=== PATIENT | male | born 1945 | race Caucasian/White ===

== ENCOUNTER → 2016-08-12 | Outpatient (CLI) | payer OTHER, MEDICARE ==
[~2016-08-12] MED LIST: ACET1TAB84 PO; ASPI81TA28 PO; ATEN-173 PO; HYDR25TA5 PO; NAPR1TAB9 PO; PRLSR20 PO; SIMV10TA2 PO
--- NOTE | 2016-08-12 09:28 | DIAGNOSTIC IMAGING REPORT ---
BILATERAL KNEE RADIOGRAPHS CLINICAL HISTORY: Bilateral knee pain COMPARISON: Knee radiograph September 04, 2015. FINDINGS: Right knee: There is severe medial compartment joint space narrowing of the right knee with extensive osteophytosis. There is subchondral sclerosis. There is extensive osteophytosis within the 3 compartments of the right knee with extensive spurring of the superior pole of the patella. There is no fracture or suspicious lesion. There is a moderate to large right knee joint effusion. Left knee: There is moderate to severe medial compartment joint space narrowing of the left knee. There are severe osteophytosis within the 3 compartments of the left knee. No fracture or suspicious lesion is present. There is a moderate-sized left knee joint effusion. IMPRESSION: Right knee: 1. Severe osteoarthrosis of the right knee, most pronounced within the medial compartment. 2. No acute fracture. 3. Moderate to large right knee joint effusion. Left knee: 1. Severe arthritis of the left knee, most pronounced within the medial compartment. 2. Moderate size left knee joint effusion. Electronically signed by: Markos Cordoba M.D. 08/12/2016 9:26 AM Dictated Date/Time: 08/12/2016 9:23 AM
== END | disposition home or self-care (01) ==
LOC: C.RDSM 12:05
PROVIDERS: ATTEND Physician Assistant
DX: M25.561 Pain in right knee (principal); M25.562 Pain in left knee

== ENCOUNTER → 2017-02-28 | Outpatient (CLI) | payer OTHER, MEDICARE ==
[~2017-02-28] VITALS: Ht 177.8 cm; Wt 96.3 kg
[2017-02-28 10:10] VITALS: Ht 177.8 cm; Wt 96.3 kg
--- NOTE | 2017-02-28 10:42 | PAT Medication Instructions ---
Service Date Feb 28, 2017. Current Home Medication List Acetaminophen (Tylenol Arthritis Ext Rel), 650 MG PO UD PRN for Pain Aspirin (Aspirin Ec), 81 MG PO QPM Atenolol (Tenormin), 25 MG PO QAM Hydrochlorothiazide (Hydrochlorothiazide), 1 TAB PO QAM Naproxen (Aleve), 1 TAB PO BID Omeprazole (Prilosec), 20 MG PO Q2D Simvastatin (Zocor), 1 TAB PO HS Medication Instructions For Your Scheduled Surgery - Check with surgeon for instructions: Naproxen (Aleve), 1 TAB PO BID - Continue as directed: Omeprazole (Prilosec), 20 MG PO Q2D - Hold the following medications the morning of surgery: Hydrochlorothiazide (Hydrochlorothiazide), 1 TAB PO QAM - Take the following medications the morning of surgery with a sip of water: Acetaminophen (Tylenol Arthritis Ext Rel), 650 MG PO UD PRN for Pain i(okay to take up to 4 hours prior to surgery if needed) Atenolol (Tenormin), 25 MG PO QAM - Take the following medications as scheduled the night before surgery: Aspirin (Aspirin Ec), 81 MG PO QPM Simvastatin (Zocor), 1 TAB PO HS If you have any questions please call us at [phone] or [phone] or [phone]
--- NOTE | 2017-02-28 11:21 | DIAGNOSTIC IMAGING REPORT ---
CHEST 2 VIEWS ROUTINE CLINICAL HISTORY: PAT preoperative evaluation COMPARISON STUDY: No previous studies for comparison. FINDINGS: The bones soft tissues and hemidiaphragms are normal. The cardiomediastinal silhouette is normal. The lungs are clear. The pulmonary vasculature is normal. IMPRESSION: Negative chest. The above report was generated using voice recognition software. It may contain grammatical, syntax or spelling errors. Electronically signed by: River Ramirez M.D. 02/28/2017 11:19 AM Dictated Date/Time: 02/28/2017 11:18 AM
[2017-02-28 11:23] LABS: BASO % 0.2 %; BASO ABS # 0.02 K/uL (0-0.2); EOS % 1.4 %; EOS ABS # 0.13 K/uL (0-0.5); HEMATOCRIT 45.6 % (42-52); HEMOGLOBIN 15.6 g/dL (14.0-18.0); IG# 0.01 K/uL (0.00-0.02); LYMPH % 12.6 %; LYMPH ABS # 1.15 K/uL (1.2-3.4); MEAN CELL VOLUME 89.1 fL (80-100); MEAN CORPUSCULAR HEMOGLOBIN 30.5 pg (25-34); MEAN CORPUSCULAR HGB CONC 34.2 g/dl (32-36); MEAN PLATELET VOLUME 10.4 fL (7.4-10.4); MONO % 11.8 %; MONO ABS # 1.07 K/uL (0.11-0.59); NEUT % 73.9 %; NEUT ABS # 6.72 K/uL (1.4-6.5); PLATELET COUNT 224 K/uL (130-400); RED CELL DISTRIBUTION WIDTH SD 42.4 fL (36.4-46.3)
[2017-02-28 11:32] LABS: PTT PATIENT 27.1 SECONDS (21.0-31.0)
[2017-02-28 12:19] LABS: CALCIUM 9.1 mg/dl (8.5-10.1); CREATININE 1.24 mg/dl (0.60-1.40); POTASSIUM 4.3 mmol/L (3.5-5.1)
--- NOTE | 2017-03-04 16:45 | HISTORY & PHYSICAL EXAMINATION ---
DATE OF ADMISSION: 03/26/2017 CHIEF COMPLAINT: Left knee pain. HISTORY OF PRESENT ILLNESS: This 71-year-old white male presents to the office with complaints of left knee pain that has been ongoing for several years. It has become worse with time. He describes more of a soreness and stiffness in the knee most of the time. Pain is affecting his ADLs. No catching or locking. No buckling. He has tried oral anti-inflammatories, activity modification, topical agents, cortisone injections, and viscosupplementation without lasting relief. Preoperative imaging has been obtained. He elects to proceed with total knee arthroplasty in hopes of alleviating his discomfort. PAST MEDICAL HISTORY: Significant for hypertension, osteoarthritis, GERD, kidney stones, Lyme disease, elevated cholesterol, and history of pneumonia. PREVIOUS SURGERIES: Tonsillectomy with adenoidectomy, dental surgery, and varicocele repair. ALLERGIES: NKDA. CURRENT MEDICATIONS: Aspirin 81 mg daily, atenolol 25 mg daily, HCTZ 25 mg daily, Aleve 220 mg b.i.d., omeprazole 20 mg daily, and simvastatin 10 mg p.o. at bedtime. FAMILY HISTORY: Significant for cancer and diabetes. SOCIAL HISTORY: The patient is . No tobacco use. Rare ETOH use. REVIEW OF SYSTEMS: Significant for above stated conditions. Otherwise unremarkable. PHYSICAL EXAMINATION: GENERAL: Well-developed and well-nourished elderly white male in no acute distress. Sitting in a chair. Alert and oriented. SKIN: Warm and dry with good turgor. No rashes or lesions. No ecchymosis or erythema. HEENT: Normocephalic and atraumatic. Eyes, PERRLA and EOMI. Nares patent bilaterally without turbinate enlargement. Oropharynx is without erythema or exudate. No lesions noted. Uvula midline. Oral mucosa moist. HEART: RRR. No MGR. LUNGS: Clear to auscultation bilaterally. No crackles, rhonchi or wheezing. Good air movement. ABDOMEN: Bowel sounds present x4. Soft and nontender. No organomegaly. No masses. MUSCULOSKELETAL: Left knee evaluation reveals no intra-articular effusion. No redness or warmth. He has a varus alignment. Stable collateral ligaments. Focal discomfort with palpation over the medial and lateral joint lines. No defect in the patellar tendon or quadriceps tendon. Lacks approximately 5 degrees of terminal extension. Flexion to well over 100 degrees. Strength is 5/5 with good quad tone. Ambulatory with a slightly antalgic gait. NEUROLOGIC: Cranial nerves II through XII are intact. Gross sensation is intact across the left leg by soft touch. Peripheral pulses are 2+. DATA: Radiographic imaging previously obtained shows tricompartmental arthritis. Periarticular osteophytes, subchondral sclerosis, and joint space narrowing are all present. IMPRESSION: Left knee end-stage degenerative joint disease. PLAN: Postoperative prescriptions for [place] and Coumadin will be provided at discharge from the hospital. He requests no significant of Protonix and no heavy narcotics. Preoperative lab work, EKG, and chest x-ray have been ordered. Medical clearance has been requested from his PCP. Anticipate discharge to home with likely outpatient PT. He will consider home health. He elects to use crutches postoperatively and will obtain a set and bring them to the hospital. YORDAN
== END | disposition home or self-care (01) ==
LOC: C.LAB 08:00 → EDSTATUS 03-26 07:00
PROVIDERS: ATTEND Physical Medicine & Rehabilitation Sports Medicine
DX: Z01.818 Encounter for other preprocedural examination (principal); M17.12 Unilateral primary osteoarthritis, left knee

== ENCOUNTER 2023-12-03 05:03 | Observation (INO) ==
--- NOTE | 2023-11-05 12:29 | PAT Medication Instructions ---
Medication Instructions Date of Service November 05, 2023 Home Medications acetaminophen 325 mg tablet 650 mg PO BID PRN aspirin 81 mg tablet,delayed release 81 mg PO QAM lisinopril 10 mg tablet 10 mg PO QAM metoprolol succinate 100 mg tablet,extended release 24 hr 100 mg PO QAM triamterene 37.5 mg-hydrochlorothiazide 25 mg capsule 1 cap PO QAM L.acidophil-L.casei-B.bifid-B.longum-FOS 2 billion cell-50 mg capsule (Probiotic Blend) 1 cap PO QAM fluticasone propionate 50 mcg/actuation nasal spray,suspension (Flonase Allergy Relief) 1 spray intranasal DAILY PRN multivitamin with minerals-folic acid 80 mcg chewable tablet (Centrum Adult 50 Plus) 1 tab PO QAM pantoprazole 40 mg tablet,delayed release 40 mg PO Q OTHER DAY rosuvastatin 40 mg tablet 40 mg PO HS tadalafil 20 mg tablet 20 mg PO QAM vitamin C 45 mg-zinc citrate 3.75 mg-elderberry 50 mg chewable tablet ([employer]) 2 tab PO QAM Continue as directed pantoprazole 40 mg tablet,delayed release 40 mg PO Q OTHER DAY fluticasone propionate 50 mcg/actuation nasal spray,suspension (Flonase Allergy Relief) 1 spray intranasal DAILY PRN(if needed) ASK your prescriber and surgeon aspirin 81 mg tablet,delayed release 81 mg PO QAM DO NOT take the morning of surgery lisinopril 10 mg tablet 10 mg PO QAM triamterene 37.5 mg-hydrochlorothiazide 25 mg capsule 1 cap PO QAM L.acidophil-L.casei-B.bifid-B.longum-FOS 2 billion cell-50 mg capsule (Probiotic Blend) 1 cap PO QAM multivitamin with minerals-folic acid 80 mcg chewable tablet (Centrum Adult 50 Plus) 1 tab PO QAM tadalafil 20 mg tablet 20 mg PO QAM vitamin C 45 mg-zinc citrate 3.75 mg-elderberry 50 mg chewable tablet ([employer]) 2 tab PO QAM Take morning of surgery With a small sip of water, OTHERWISE NOTHING TO EAT OR DRINK AFTER MIDNIGHT: acetaminophen 325 mg tablet 650 mg PO BID PRN(if needed) metoprolol succinate 100 mg tablet,extended release 24 hr 100 mg PO QAM Take evening before surgery acetaminophen 325 mg tablet 650 mg PO BID PRN(if needed) rosuvastatin 40 mg tablet 40 mg PO HS Other Notes If you have any questions please call us at [phone] or [phone] or [phone] or [phone]
--- NOTE | 2023-11-10 14:50 | Anesthesiology Consultation ---
Date of Service November 10, 2023 Assessment & Plan (1) Encounter for pre-operative examination: - Katie Paez cardiology clearance and updated echocardiogram per discussion with Dr. Gomez. 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 Surgeon's office made aware, message left requesting patient return call. Determination on procedure at [facility] will pend medical and cardiology clearances, updated echocardiogram and then final discussion with an anesthesiologist. - awaiting medical pre-operative evaluation (Dr. Hector Hewitt) scheduled for this month per pt. - will request recent labs from PCP Dr. Hector Hewitt, reviewed on portal and CBC with diff and BMP were cancelled. - Medtronic ICD. - h/o awareness during left knee replacement: I had a detailed discussion with patient regarding neuraxial vs general anesthesia and he expresses would prefer neuraxial anesthesia for upcoming procedure. 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 Adequate pacing and sensing thresholds. Adequate battery reserve...no angina...appears euvolemic...follow up one year..." - Outpatient joint assessment: Patient is currently scheduled for inpatient pathway. If re-evaluated and patient/surgeon requests outpatient pathway, patient is not ideal candidate for outpatient joint program from anesthesia standpoint. Chart Review Chart Review: Pending: Refer to Additional Notes / Consult section and Patient seen in Pre Admission Testing Teaching & Discussion Pre-Anesthesia Teaching/Discussion Notes: Instructed NPO after midnight before surgery, except medications with 15 cc of water. Medication instructions provided according to the PAT guidelines. History Surgery Operation Date: 12/03/23 08:50 Proposed Procedures p Right Total Knee Arthroplasty - Babar Hall MD Height/Weight Height: 5 ft 10 in Weight: 90.1 kg Allergies Allergy/AdvReac Type Severity Reaction Status Date / Time bee pollen Allergy Severe anaphylaxis Verified 11/04/23 12:18 amoxicillin AdvReac Severe Diarrhea Verified 11/04/23 12:18 Medications Home Medications Medication Instructions Recorded Confirmed Last Taken acetaminophen 325 mg tablet 650 mg PO BID PRN Pain 0911/04/23 12/24/17 03:00 aspirin 81 mg tablet,delayed 81 mg PO QAM 11/28/17 11/04/23 12/24/17 03:00 release lisinopril 10 mg tablet 10 mg PO QAM 11/28/17 11/04/23 12/23/17 07:00 metoprolol succinate 100 mg 100 mg PO QAM 11/28/17 11/04/23 12/24/17 03:00 tablet,extended release 24 hr triamterene 37.5 1 cap PO QAM 11/28/17 11/04/23 12/23/17 07:00 mg-hydrochlorothiazide 25 mg capsule L.acidophil-L.casei-B.bifid-B.longum-FOS 1 cap PO QAM 11/04/23 11/04/23 Unknown 2 billion cell-50 mg capsule (Probiotic Blend) fluticasone propionate 50 1 spray intranasal DAILY PRN Nasal 11/04/23 11/04/23 Unknown mcg/actuation nasal Congestion spray,suspension (Flonase Allergy Relief) multivitamin with minerals-folic 1 tab PO QAM 11/04/23 11/04/23 Unknown acid 80 mcg chewable tablet (Centrum Adult 50 Plus) pantoprazole 40 mg tablet,delayed 40 mg PO Q OTHER DAY 11/04/23 11/04/23 Unknown release rosuvastatin 40 mg tablet 40 mg PO HS 11/04/23 11/04/23 Unknown tadalafil 20 mg tablet 20 mg PO QAM 11/04/23 11/04/23 Unknown vitamin C 45 mg-zinc citrate 3.75 2 tab PO QAM 11/04/23 11/04/23 Unknown mg-elderberry 50 mg chewable tablet ([employer]) Past Medical History Medical History CAD (coronary artery disease) s/p LIZZY x 1 in 2018 [facility]omyopathy [facility] [place] GERD (gastroesophageal reflux disease) controlled, stable per pt Hypertension controlled, stable per pt ICD (implantable cardioverter-defibrillator) in place Medtronic Myocardial Infarction ?2016 - "SILENT UT"--follows with [facility] [place] Osteoarthritis Sleep-disordered breathing denies formal sleep study, states that was advised to use oral appliance by dentist Patient denies h/o stroke, seizures, DM, blood clots/DVTs or blood transfusions. Exercise / Class Metabolic Activity II 4-5 Yardwork/Stairs/Walk up hill (denies chest discomfort or shortness of breath with one flight of stairs) Past Family History Family History Other No family history of adverse response to anesthesia Past Surgical History Surgical History History of cardiac cath LIZZY X1 05/21/17 TO [facility] at [facility] in [place] History of heart artery stent 04/2017 1 LIZZY placed--done @ [facility] History of implantable cardiac defibrillator (ICD) medtronic 02/20/2021 @ [facility] History of left knee replacement awareness Hx of colonoscopy Hx of tonsillectomy S/P excision of varicocele Past Anesthesia History No Family Hx of Anesthesia Complications and Other (awareness with left TKA) History of PONV No Hx of PONV and No Hx of Motion Sickness Social History Smoking Status: Former smoker Do You Dip or Chew Tobacco: No Smoking End Date: quit years ago Hx Alcohol Use: Yes Alcohol type: beer and hard liquor alcohol intake frequency: a few times a week Hx Substance Use: No substance use type: does not use Review of Systems Patient denies chest pain, shortness of breath, dyspnea on exertion, snoring, witnessed apneas, fever, chills, cough, wheezing, or palpitations. Physical Exam Vital Signs Vitals BP 118/71 P 66 TEMP 98.0 SP02 96% on RA RESP 18 Physical Patient resting comfortably in chair in no acute distress, alert and oriented, responding appropriately throughout visit Full cervical extension range of motion without pain TMD 3.5 finger breadths Mallampati Score 2 Dentition: intact, denies chipped or loose teeth, caps/crowns, implants or bridges Lungs: normal respiratory effort. Good air movement, clear throughout to auscultation, no adventitious breath sounds Cardiac: regular rate and rhythm, no murmurs noted Carotid arteries: negative bruit bilat Lab Results Anesthesia Preop Results Results Anesthesia Widget: PT 11.3 Seconds (9.0-12.0) 11/10/23 PTT 28 Seconds (21-31) 11/10/23 INR 1.0 (0.9-1.1) 11/10/23 Urine Color Yellow 11/10/23 Urine Appearance Clear (Clear) 11/10/23 Urine pH 6.0 (4.5-7.5) 11/10/23 Urine Specific [place] 1.013 (1.000-1.030) 11/10/23 Urine Protein Negative (Negative) 11/10/23 Urine Glucose (UA) Negative (Negative) 11/10/23 Urine Ketones Negative (Negative) 11/10/23 Urine Blood Negative (Negative) 11/10/23 Urine Nitrite Negative (Negative) 11/10/23 Urine Bilirubin Negative (Negative) 11/10/23 Urine Urobilinogen Negative (Negative) 11/10/23 Urine Leukocyte Esterase Negative (Negative) 11/10/23 Blood Type AB Positive 11/10/23 Antibody Screen NEGATIVE 11/10/23 Testing Electrocardiogram Date: 08/31/23 Sinus bradycardia with 1st degree AV block, rate 57 bpm Left axis deviation Septal infarct cited on or before 02/09/2021 Chest X-Ray Date: 11/10/23 No active disease in the chest. Echocardiogram Date: 01/01/21 EF 30-35% Large sized apical, septal, anteroseptal, anterior, inferior, posterior and lateral wall motion abnormality with akinesis of the segments Aortic valve is mildly sclerotic, but without aortic valve stenosis Mild to moderate aortic valve insufficiency Mild mitral regurgitation Mildly dilated ascending aorta Cardiac Catheterization Date: 03/23/18 RCA: 30-40% disease mid to distal portion Left main: 20-30% disease LCx: 20-30% disease LAD: 100% occlusion in the proximal portion which is known. There are left to left collaterals filling the vessel retrogradely up to its midportion Stent visible in ostium of ramus intermedius: no in-stent restenosis Recommend further workup of the ascending aortic aneurysm Other Testing ICD report 09/01/23 Medtronic Mode AAI DDD Alerts or events: none Presenting rhythm-/VS No significant changes noted A pacing 0.5% RV pacing 0.05% AT/AF burden 0%
--- NOTE | 2023-11-12 10:33 | History & Physical Report ---
Date of Service November 12, 2023 Assessment & Plan (1) Osteoarthritis of right knee: Plan: PRE-OP Diagnosis: Right knee osteoarthritis Planned Procedure: Right total knee arthroplasty Plan: Patient is scheduled to undergo this procedure at the [facility] with Dr. Hall on December 03, 2023. Risks and complications of the procedure such as: Infection, bleeding, pain, scarring, nerve blood vessel damage, weakness, wound problems, stiffness, incomplete relief of symptoms, hardware failure, hardware loosening, wear, fracture, tendon or ligament injury, blood clots, embolism, cardiac, stroke and were explained to the patient at his visit today and informed consent for the procedure was obtained. We will need to obtain preoperative medical clearance from the patient's primary care provider and telecasting technician. Patient is scheduled to meet with anesthesia at the hospital later today. While there he will obtain a CBC with differential, complete metabolic panel, PT/INR, PTT, blood type and screen, urinalysis, urine culture and sensitivity, EKG a nasal culture for MRSA and a chest x-ray. During today's visit we reviewed the total knee packet. I provided the patient with paperwork to obtain obtaining a handicap placard for his vehicle. I provided him with information about lectures offered by [facility] in regards to joint replacement surgery. Patient has a walker at home that he will bring with him on the day of surgery. Patient also states that he has a shower chair and raised toilet seat from his previous total knee arthroplasty. We discussed discharge planning from the hospital. Patient states he will most likely do in-home physical therapy for the first 2 weeks before transitioning to outpatient physical therapy near his home. I advised the patient that he will be provided with a prescription for narcotic pain medication for postoperative pain control. We will have him on Eliquis twice daily for the first 30 days postoperatively for blood clot prevention. Patient is scheduled for his 2-week postoperative follow-up visit with Rocky Velasco on December 17. This chart was completed utilizing [employer] voice recognition software. Grammatical errors, random word insertions, pronoun errors, and in complete sentences are an occasional consequence of the system. Any questions or concerns about the content, text, or information contained within the body of this dictation should be addressed directly to the physician for clarification. History of Present Illness Chief Complaint: Chief Complaint: Right knee pain Primary Care Provider: Hector Hewitt MD History of Present Illness (including history relevant to procedure): This 78-year-old male presents to clinic today for his preoperative history and physical. Patient has a longstanding history of persistent right knee pain that is affecting his ability to ambulate in a normal fashion. Patient states that the he has tried corticosteroid injections, viscosupplementation and activity modification but is still having discomfort in the medial aspect of his knee. He states that he has obvious malalignment and is unable to fully straighten his leg. Patient states that he previously had his left knee replaced and is doing very well and would like to proceed with right total knee arthroplasty. Review Of Systems: A 12 point review of systems is performed and is unremarkable except for those things stated in the HPI and past medical history. Past Medical History: Problems: Right knee pain Osteoarthritis of right knee S/P total knee arthroplasty Knee osteoarthritis Knee pain, left HTN (hypertension) Osteoarthritis Knee Hypercholesterolemia Procedure History Procedure Procedure Date Comments Stent - 2017 Cardiac pacemaker - 02/20/21 placement Varicella 1967 Allergies and Sensitivities: amoxicillin-clavulanate(severe diarrhea) Bee stings Current Home Meds: (Last Updated 11/09 13:38) acetaminophen (Tylenol) 1,000 mg PO every six hours aspirin (aspirin 81 mg oral delayed release tablet) 81 mg PO Daily clindamycin (clindamycin 300 mg oral capsule) 2 capsules 1 hour before dental cleaning hydroCHLOROthiazide-triamterene (hydroCHLOROthiazide-triamterene 25 mg-37.5 mg oral tablet) 1 tab PO Daily lisinopril 2.5 mg PO Daily metoprolol (metoprolol succinate (ER)) 50 mg PO Daily rosuvastatin 20 mg PO Daily sildenafil 80 mg PO as needed sodium hyaluronate (Gelsyn-3 16.8 mg/2 mL intra-articular solution) 16.8 mg intra-articular q7days R KNEE DJD M17.11 tadalafil (Tadalafil (Eqv-Cialis) 20 mg oral tablet) TAKE 1 TABLET BY MOUTH ONCE DAILY NEEDED FOR ERECTILE DYSFUNCTION Initial Wt: 11/09 89.6 kg 197 lb Allergies Allergy/AdvReac Type Severity Reaction Status Date / Time bee pollen Allergy Severe anaphylaxis Verified 11/04/23 12:18 amoxicillin AdvReac Severe Diarrhea Verified 11/04/23 12:18 Home Medications Medication Instructions Recorded Confirmed Type acetaminophen 325 mg tablet 650 mg PO BID PRN Pain 11/28/17 11/04/23 History aspirin 81 mg tablet,delayed 81 mg PO QAM 11/28/17 11/04/23 History release lisinopril 10 mg tablet 10 mg PO QAM 11/28/17 11/04/23 History metoprolol succinate 100 mg 100 mg PO QAM 11/28/17 11/04/23 History tablet,extended release 24 hr triamterene 37.5 1 cap PO QAM 11/28/17 11/04/23 History mg-hydrochlorothiazide 25 mg capsule L.acidophil-L.casei-B.bifid-B.longum-FOS 1 cap PO QAM 11/04/23 11/04/23 History 2 billion cell-50 mg capsule (Probiotic Blend) fluticasone propionate 50 1 spray intranasal DAILY PRN Nasal 11/04/23 11/04/23 History mcg/actuation nasal Congestion spray,suspension (Flonase Allergy Relief) multivitamin with minerals-folic 1 tab PO QAM 11/04/23 11/04/23 History acid 80 mcg chewable tablet (Centrum Adult 50 Plus) pantoprazole 40 mg tablet,delayed 40 mg PO Q OTHER DAY 11/04/23 11/04/23 History release rosuvastatin 40 mg tablet 40 mg PO HS 11/04/23 11/04/23 History tadalafil 20 mg tablet 20 mg PO QAM 11/04/23 11/04/23 History vitamin C 45 mg-zinc citrate 3.75 2 tab PO QAM 11/04/23 11/04/23 History mg-elderberry 50 mg chewable tablet ([employer]) Past Med/Surg History Problem List (Updated 11/12/23 @ 10:31 by Zeeshan Aguilar PA-C) Osteoarthritis of right knee Encounter for pre-operative examination Medical History Sleep-disordered breathing denies formal sleep study, states that was advised to use oral appliance by dentist ICD (implantable cardioverter-defibrillator) in place Medtronic Cardiomyopathy follows with [facility] [place] CAD (coronary artery disease) s/p LIZZY x 1 in 2018 Hypertension controlled, stable per pt Osteoarthritis GERD (gastroesophageal reflux disease) controlled, stable per pt Myocardial Infarction ?2016 - "SILENT GA"--follows with [facility] [place] Surgical History History of left knee replacement awareness History of heart artery stent 04/2017 1 LIZZY placed--done @ [facility] History of implantable cardiac defibrillator (ICD) medtronic 02/20/2021 @ [facility] S/P excision of varicocele Hx of colonoscopy Hx of tonsillectomy History of cardiac cath LIZZY X1 05/21/17 TO RAMUS at [facility] in [place] Family History Other No family history of adverse response to anesthesia Social History Smoking Status: Former smoker Tobacco Type: Cigarettes Second Hand Exposure: No; Do You Dip or Chew Tobacco: No; Hx Alcohol Use: Yes Alcohol type: beer and hard liquor Hx Substance Use: No Preferred Language: Sami Communication Ability: Effective Visual Impairment: Limited Frame Table Operator Helper Required: No Beliefs That Will Affect Care: None Current Living Situation: Spouse Feels Safe at Home: Yes Assistive Devices: Glasses Review of Systems All systems reviewed & are unremarkable except as noted in Subjective Physical Exam Physical Exam: Physical Exam: (relevant to the procedure, including heart and lung evaluation) General: Alert and oriented x 3 with proper grooming and hygiene Eyes: Pupils are equal reactive to light with accommodation. Extraocular movements are intact Throat: Posterior oropharynx is clear with absence of edema, erythema or exudate. Dentition is appropriate Cardiac: Regular rate and rhythm with a grade 3/6 holosystolic murmur noted in the left upper and lower sternal border. No gallops appreciated Lungs: Clear to auscultation throughout with no wheezing, rales or rhonchi Abdomen: Mildly obese, nondistended, nontender with NABS Extremities: Right knee; range of motion is from 8 degrees of extension to 102 degrees of flexion. He has visible varus malalignment. There is audible crepitation with passive range of motion. His patella is not mobile due to arthritic change within the patellofemoral joint. There is no laxity with varus or valgus stressing. AP drawer sign and Shayne test are negative. Patient is neurovascularly intact in right lower extremity. Neuro: Cranial nerves II through XII are intact no motor or sensory deficit Skin: Normal in appearance with no open skin areas or discharge Results & Data Diagnostic Findings Studies (relevant to the procedure): x-rays shows advanced osteoarthritis of the right knee and a well-fixed, well-aligned knee replacement on the left.
[2023-12-03 05:46] LABS: Basophils # (auto) 0.05 K/uL (0.00-0.20); Basophils % (auto) 0.6 %; Eosinophils % (auto) 2.6 %; Hematocrit (blood only) 39.4 % (42.0-52.0); Hemoglobin 13.5 g/dl (14.0-18.0); Immature Granulocytes # (auto) 0.01 K/uL (0.01-0.20); Immature Granulocytes % (auto) 0.1 %; Lymphocytes # (auto) 1.66 K/uL (1.20-3.40); Lymphocytes % (auto) 21.2 %; Mean Corpuscular Hgb Conc 34.3 g/dL (32.0-36.0); Mean Corpuscular Volume 90.4 fL (80.0-100.0); Mean Platelet Volume 9.9 fL (9.4-12.4); Monocytes # (auto) 1.11 K/uL (0.11-0.59); Monocytes % (auto) 14.2 %; Neutrophils % (auto) 61.3 %; Platelet Count 226 K/uL (130-400); RDW Coefficient of Variation 13.2 % (11.5-14.5); RDW Standard Deviation 43.8 fL (36.4-46.3); Red Blood Count 4.36 M/uL (4.70-6.10); White Blood Count 7.83 K/ul (4.8-10.8)
[2023-12-03 06:00] LABS: BUN Creatinine Ratio 14.3 (10-20); Calcium 9.7 mg/dl (8.6-10.3); Creatinine Clr Calc Pharmacy 58.6 ml/min; Est GFR (African American) 67.9 ml/min; Est GFR (Non-African American) 58.6 ml/min; Potassium 3.8 mmol/L (3.5-5.1)
[2023-12-03] MEDS: ACETAMINOPHEN 500 MG TAB PO SCH ×2 (06:00→14:56)
[2023-12-03] MEDS ORDERED: ceFAZolin 3000MG 3,000 MG/72.5 ML BAG IV SCH (06:00)
[2023-12-03] MEDS ORDERED: LR 500ML BOLUS, THEN 15ML/HR IV SCH (06:00)
--- OUTSIDE RECORDS SUMMARY | 2023-12-03 06:11 | External Medical Summary | Summary of Care ---
Author Name Unknown Organization [facility] Address [address] [place] [address] Phone [phone] Care Team Providers Care Die Casting Machine Setter Name Role Phone Hector Hewitt MD Primary Care Provider Reason for Visit * Reason Onset Date Comments Medication Refill 11/26/2023 Encounter Details Date Type Department Care Team (Late st Contact Info) Description 11/26/2023 Refill Cardiology [facility] [address], [place] [id number] Nancy Hernandez CRNP [address] [place] [address] [id number] Dyslipidemia, goal LDL below 70 Allergies Active Allergy Reactions Criticality Noted Date Comments Amoxicillin Diarrhea 08/30/2016 Amoxicillin-Pot Clavulanate 08/29/19 23 Bee Venom Edema airway High 11/01/2016 documented as of this encounter (statuses as of 11/26/2023) Medications Medication Sig Dispensed Refills Start Date End Date Status Aspirin 81 MG Oral Tablet Delayed Release Take 1 Tablet by mouth in the morning. Active Metoprolol Succinate ER 100 MG Oral Tablet Extended Release 24 Hour (toPROL XL)Indications:Syst olic CHF, chronic (HCC) TAKE 1 TABLET BY MOUTH IN THE MORNING 90 Tablet 3 05/14/2023 Active Lisinopril 10 MG Oral Tablet (Prinivil)Indicatio ns:Systolic CHF, chronic (HCC) TAKE 1 TABLET BY MOUTH IN THE MORNING 90 Tablet 3 05/14/2023 Active Triamterene-HCTZ 37.5-25 MG Oral Tablet ((Maxzide-25))Indic ations:Systolic CHF, chronic (HCC) TAKE 1 TABLET BY MOUTH DAILY 90 Tablet 3 05/14/2023 Active Fluticasone Propionate 50 MCG/ACT Nasal Suspension (Flonase) USE 2 SPRAYS IN BOTH NOSTRILS ONCE DAILY 48 g 3 06/20/2023 Active Tadalafil 20 MG Oral Tablet (Cialis)Indications :Erectile dysfunction, unspecified erectile dysfunction type Take 1 Tablet by mouth daily as needed for Erectile Dysfunction. 30 Tablet 5 07/21/2023 Active Additional Information Patient taking differently:20 mg OralDaily(AM), Reported on 11/17/2023 Pantoprazole Sodium 40 MG Oral Tablet Delayed Release (Protonix)Indicatio ns:Gastroesophageal reflux disease without esophagitis TAKE 1 TABLET BY MOUTH EVERY OTHER DAY 45 Tablet 3 08/26/2023 Active Centrum Silver 50+Men Oral Tablet Take 1 Tablet by mouth daily. Active Acetaminophen 500 MG Oral Tablet (Tylenol Extra Strength) Take 2 Tablets by mouth every 6 hours as needed for Pain, Moderate. Active Culturelle Digestive Daily Oral Capsule Take 1 Capsule by mouth in the morning. Active Civolutionberry [employer] Health Gummy 50-45-3.8 MG Oral Tablet Chewable (Elderberry-Vitamin C-Zinc) Take 1 Each by mouth daily. Active Rosuvastatin Calcium 40 MG Oral Tablet (Crestor)Indication s:Dyslipidemia, goal LDL below 70 Take 1 Tablet by mouth in the morning. 90 Tablet 3 11/26/2023 Active documented as of this encounter (statuses as of 11/26/2023) Active Problems Problem Noted Date Diagnosed Date CAD in [place] artery 08/31/2022 Gastroesophageal reflux disease 08/31/2022 Hyperlipidemia 08/31/2022 Hypertension 08/31/2022 S/P coronary artery stent placement 08/31/2022 S/P ICD (internal cardiac defibrillator) procedu re 08/31/2022 Screening PSA (prostate specific antigen) 2022 Systolic CHF, chronic 02/09/2021 Overview: Added automatically from request for surgery [id number] documented as of this encounter (statuses as of 11/26/2023) Immunizations Name Administration Dates Next Due COVID-19 mRNA, LNP-s, No Pre serve, 2-Dose Series (Pfizer) 06/02/2020,05/12/2020 DTaP Dipth/Tet/Acell Pertussis (Infanrix), Peds 07/12/2018 Pneumococcal Conjugate Vacc, 13 Valent (Prevnar) 03/01/2016,03/01/2016 Pneumococcal Polysaccharide PPV23 (Pneumovax) 12/11/2016 Season Influenza, Quad, PF, Adjuvanted, 65+ Yrs, IM (FLUAD) 12/17/2019 Seasonal Influenza, High Dos e, Trivalent, PF, IM (Fluzone HD) 01/27/2018,12/11/2016,01/01/2016 Seasonal Influenza, PF, 6 M & above, IM , (FluLaval or Fluzone) 01/01/2016,01/24/2014,12/22/2012,12/03,01/21/2011 Seasonal Influenza, Quadriva lent Hd (Fluzone Hd) 03/03/2023 Seasonal Influenza, Quadriva lent Hd, 65+ Yrs 01/10/2022,12/25/2020 Seasonal Influenza, Quadriva lent, No Preserve, IM 01/24/2014 Seasonal Influenza, Trivalen t, (IIV3), with Preserv, (Fluzone) 12/22/2012,12/04/2011,01/21/2011 Zoster Vaccine Recombinant (Shingrix) 11/22/2018 ,10/22/2018 documented as of this encounter Social History Tobacco Use Types Packs/Day Years Used Date Smoking Tobacco: Former Cigarettes Smokeless Tobacco: Never Alcohol Use Standard Drinks/Week Comments Yes 0 (1 standard drink = 0.6 oz pur e alcohol) occas PHQ-2 Answer Date Recorded PHQ Adult Total Score 0 10/30/2023 Hunger Vital Sign Answer Date Recorded Within the past 12 months, y ou worried that your food would run out before you got the money to buy more. Never true 10/30/19 24 Within the past 12 months, t he food you bought just didn't last and you didn't have money to get more. Never true 10/30/2023 Childcare Answer Date Recorded Do you feel overwhelmed with taking care of a child, family member or friend? No 10/30/2023 Does your family need help f inding childcare? (Household - for ages 0-17 years) Not on file 10/30/2023 Clothing Answer Date Recorded Have you been unable to get clothing when it was really needed? No 10/30/2023 Is your family able to get c lothes or diapers when needed? (Household - for ages 0-17 years) Not on file 10/30/2023 Personal Safety Answer Date Recorded Do you feel unsafe or have concerns for your saf ety? No 10/30/2023 Do you have concerns for you r family's safety? (Household - for ages 0-17 years) Not on file 10/30/2023 Utilities Answer Date Recorded Do you have trouble paying y our heating, water, or electric bill? No 10/30/2023 Is your family able to pay t he heat, water, or electric bill? (Household - for ages 0-17 years) Not on file 10/30/2023 Does your family have access to good internet? (Household - for ages 0-17 years) Not on file 10/30/2023 Employment Status Answer Date Recorded Are you unemployed or without regular income? No 10/30/2023 Does the household have a re gular source of income? (Household - for ages 0-17 years) Not on file 10/30/2023 Social Connections Answer Date Recorded How often do you feel lonely or isolated from th ose around you? Never 10/30/2023 Financial Resource Strain Answer Date R ecorded Do you have any trouble payi ng for your medications, or do you think you might in the future? No 10/30/2023 Does your family have troubl e paying for medicine? (Household - for ages 0-17 years) Not on file 10/30/2023 Transportation Needs Answer Date Record ed Do you have trouble getting a ride to medical visits or work? (Adult - for ages 18 years and over) Not on file 10/30/2023 Does your family have a hard time getting a ride to doctors visits? (Household - for ages 0-17 years) Not on file 10/30/2023 Has lack of transportation k ept you from medical appointments, meetings, work, or from getting things needed for daily living? Check all that apply. No 10/30/2023 Do you (or your family) have trouble finding or paying for a ride (transportation)? (Household - for ages 0-17 years) Not on file 10/30/2023 Housing Stability Answer Date Recorded Do you currently live in a s helter or have no steady place to sleep at night? No 10/30/2023 Do you think you are at risk of becoming homeless? (Adult - for ages 18 years and over) Not on file 10/30/2023 Does your family worry about paying for your home or becoming homeless? (Household - for ages 0-17 years) Not on file 0 10/30/2023 Are you homeless or worried that you might be in the future? No 10/30/2023 Are you (or your family) rosalio eless or worried that you might be in the future? (Household - for ages 0-17 years) Not on file Food Insecurity Answer Date Recorded Do you need food for this week? No 10/30/2023 Are you able to get enough f ood for your family? (Household - for ages 0-17 years) Not on file 10/30/2023 Does your family need food t his week? (Household - for ages 0-17 years) Not on file 10/30/2023 Do you always have enough fo od for your family? (Household - for ages 0-17 years) Not on file 10/30/2023 Sex and Gender Information Value Date Recorded Sex Assigned at Male 10/30/2023 11:05 AM EDT Gender Identity Male 10/30/2023 11:05 AM EDT Sexual Orientation Not on file Job Start Date Occupation Industry Not on file Not on file Not on file documented as of this encounter Miscellaneous Notes * Telephone Encounter - Nancy Hernandez CRNP - 11/26/2023 5:58 PM EDT Signed Prescriptions: Disp Refills Rosuvastatin Calcium 40 MG Oral Tablet (Cr*90 Tab*3 Sig: Take 1 Tablet by mouth in the morning.Authorizing Provider: NANCY HERNANDEZ documented in this encounter Plan of Treatment Upcoming Encounters Date Type Department Care Team (Late st Contact Info) Description 04/02/2024 10:15 AM EST Office Visit Family Eddie [address] [place] [phone] Hector Hewitt MD [facility] [place] [id number] 08/12/2024 3:00 PM EDT Cardiac Studies Cardiology [facility] [address] [place] [address] Clinic, Heart Rhythm [facility] [address] [place] [address] 11/02/2024 11:00 AM EDT Nurse Only Family Morgan [address] [place] [phone] [employer] Pob Scheduled Procedures Name Priority Associated Diagnoses Date/Ti me COLONOSCOPY FLEXIBLE PROXIMA L DIAGNOSTIC Recall Family history of colon cancer Health Maintenance Due Date Last Done Comments Influenza Vaccine (FLU shot) (#1) 2023 03/03/2023, 01/10/2022, 12/25/2020, Additional history exists GFR 09/02/2024 09/03/2023, 06/0 11/2023, 02/25/2023, Additional history exists Depression Screening 10/29/2024 10/30/2023 Colonoscopy 05/10/2025 05/10/2022, 04/24, 11/01/2016 Albumin/Creatinine Ratio 10/29/2026 10/30/2023 DTap/Tdap Vaccines (2 - Tdap) 07/12/2028 07/12/2018 Pneumococcal Vaccine: 65+ Years Completed 12/11/2016, 03/01/2016, 03/01/2016 Zoster Vaccines Completed 11/22/2018, 10/22/2018 COVID-19 Vaccine Discontinued 06/02/2020, 05/12/2020 HPV (Gardasil) Vaccine Aged Out No lo nger eligible based on patient's age to complete this topic Hepatitis B Vaccine Aged Out No longe r eligible based on patient's age to complete this topic Hepatitis C Screening Discontinued MENINGOCOCCAL (MENACTRA/MENVEO) Aged Out No longer eligible based on patient's age to complete this topic documented as of this encounter Medical Devices Implanted Type Area Health Consultant Device Identifier Shelf Expiration Date Model / Serial / Lot Lead Novus Bipolar 52cm - [id number] Implanted:Qty: 1 on 02/20/2021 by Ginger Christensen MD at [facility] [employer] : CRM [id number] 11/09/2022 [id number] / [id number] / [id number] Lead [employer] Quattro Secure - [id number] Implanted:Qty: 1 on 02/20/2021 by Ginger Christensen MD at [facility] [employer] : CRM [id number] 11/07/2022 [id number] / [id number] / [id number] documented as of this encounter Visit Diagnoses Diagnosis Dyslipidemia, goal LDL below 70 Other and unspecified hyperlipidemia documented in this encounter Care Teams Die Casting Machine Setter Relationship Specialty Start Date End Date Hector Hewitt MD [facility] [place] [id number] PCP - General Family Medicine 12/30/22 documented as of this encounter
--- OUTSIDE RECORDS SUMMARY | 2023-12-03 06:11 | External Medical Summary | Summary of Care ---
Author Name Unknown Organization [facility] Address [address] [facility] [place] [address] Phone [phone] Care Team Providers Care Orientor Name Role Phone Hector Hewitt MD Primary Care Provider [phone] Reason for Visit * Reason Onset Date Comments Medication Refill 11/26/2023 Encounter Details Date Type Department Care Team (Late st Contact Info) Description 11/26/2023 Refill Cardiology [facility] [address] [place], [place] [id number] Nancy Hernandez CRNP [address] [place] [address] [phone] Dyslipidemia, goal LDL below 70 Allergies Active [...] Oral Tablet Extended Release 24 Hour (toPROL XL)Indications:Sy stolic CHF, chronic (HCC) TAKE 1 TABLET BY MOUTH IN THE MORNING 90 Tablet 3 05/14/2023 Active Lisinopril 10 MG Oral Tablet (Prinivil)Indicat ions:Systolic CHF, chronic (HCC) TAKE 1 TABLET BY MOUTH IN THE MORNING 90 Tablet 3 05/14/2023 Active Triamterene-HCTZ 37.5-25 MG Oral Tablet ((Maxzide-25))Ind ications:Systolic CHF, chronic (HCC) TAKE 1 TABLET BY MOUTH DAILY 90 Tablet 3 05/14/2023 Active Fluticasone Propionate 50 MCG/ACT Nasal Suspension (Flonase) USE 2 SPRAYS IN BOTH NOSTRILS ONCE DAILY 48 g 3 06/20/2023 Active Tadalafil 20 MG Oral Tablet (Cialis)Indicatio ns:Erectile dysfunction, unspecified erectile dysfunction type Take 1 Tablet by mouth daily as needed for Erectile Dysfunction. 30 Tablet 5 07/21/2023 Active Additional Information Patient taking differently:20 mg OralDaily(AM), Reported on 11/17/2023 Pantoprazole Sodium 40 MG Oral Tablet Delayed Release (Protonix)Indicat ions:Gastroesopha geal reflux disease without esophagitis TAKE 1 TABLET [...] Capsule by mouth in the morning. Active [facility] Gummy 50-45-3.8 MG Oral Tablet Chewable (Elderberry-Vitam in C-Zinc) Take 1 Each by mouth daily. Active Rosuvastatin Calcium 40 MG Oral Tablet (Crestor)Indicati ons:Dyslipidemia, goal LDL below 70 Take 1 Tablet by mouth in the morning. 90 Tablet 3 11/26/2023 Active Rosuvastatin Calcium 40 MG Oral Tablet (Crestor)Indicati ons:Dyslipidemia, goal LDL below 70 Take 1 Tablet by mouth in the morning. 90 Tablet 3 11/22/2022 Discontinue d(Refill) documented as of this encounter (statuses as of 11/26/2023) Active Problems Problem Noted Date Diagnosed Date CAD in [place] artery 08/31/2022 Gastroesophageal reflux disease 08/31/2022 Hyperlipidemia 08/31/2022 Hypertension 08/31/2022 S/P coronary artery stent placement 08/31/2022 S/P ICD (internal cardiac defibrillator) procedu re 08/31/2022 Screening PSA (prostate specific antigen) 2022 Systolic CHF, chronic 02/09/2021 Overview: Added automatically from request for surgery [id number] documented as of this encounter (statuses as [...] Encounter - Nancy Hernandez CRNP - 11/26/2023 5:57 PM EDT Signed Prescriptions: Disp Refills Rosuvastatin Calcium 40 MG Oral Tablet (Cr*90 Tab*3 Sig: Take 1 Tablet by mouth in the morning. Authorizing Provider: NANCY HERNANDEZ * Telephone Encounter - Kay Morse RN - 11/26/2023 12:26 PM EDT Please review this script and authorize. Pending Prescriptions: Disp Refills Rosuvastatin Calcium 40 MG Oral Tablet (C*90 Tab*3 Sig: Take 1 Tablet by mouth in the morning. 11/17/2023 08/12/2024 Last date the medication was ordered: 11/22/22 Pharmacy: [facility] Patient Phone Numbers Labs: Lab Results Component Value Date/Time CREATININE (GERI) - [facility] 1.1 08/31/2023 03:33 AM CREATININE - [facility] 1.1 02/25/2023 09:25 AM CREATININE - [facility] 1.2 09/03/2023 08:35 AM CREATININE - [facility] 1.3 (H) 05/05/2017 07:06 AM CREATININE, URINE 118.7 10/30/2023 10:09 AM CREATININE-OUTSIDE LAB 1.1 01/04/2022 08:28 AM Lab Results Component Value Date/Time POTASSIUM (GERI) - [facility] 3.1 (L) 08/31/2023 03:33 AM POTASSIUM - [facility] 4.4 02/25/2023 09:25 AM POTASSIUM - [facility] 4.5 09/03/2023 08:35 AM POTASSIUM-OUTSIDE LAB 3.9 01/04/2022 08:28 AM Lab Results Component Value Date/Time TSH - [facility] 1.08 02/25/2023 09:25 AM TSH - [facility] 1.07 08/27/2022 08:34 AM TSH - [facility] 1.29 09/03/2023 08:35 AM TSH - OUTSIDE LAB 1.35 01/04/2022 08:28 AM TSH - OUTSIDE LAB 1.55 06/29/2021 07:27 AM Lab Results Component Value Date/Time LDL (CALCULATED)-OUTSIDE LAB 63 01/04/2022 08:28 AM LDL CHOLESTEROL (CALCULATED) - [facility] 65 09/03/2023 08:35 AM LDL, CALCULATED - [facility] 52 02/25/2023 09:25 AM LDL, CALCULATED - [facility] 61 08/27/2022 08:34 AM Lab Results Component Value Date/Time ALT (GERI)- [facility] 17 08/31/2023 03:33 AM ALT - [facility] 24 09/03/2023 08:35 AM ALT-OUTSIDE LAB 16 01/04/2022 08:28 AM ALT/SGPT - [facility] 16 02/25/2023 09:25 AM No components found for: "[id number]" Labs: Lab Results Component Value Date/Time CREAT 1.2 09/03/2023 08:35 AM CREAT 1.1 01/04/2022 08:28 AM CREAT 1.3 (H) 05/05/2017 07:06 AM POTASSIUM 4.5 09/03/2023 08:35 AM POTASSIUM 3.9 01/04/2022 08:28 AM TSH 1.29 09/03/2023 08:35 AM TSH 1.35 01/04/2022 08:28 AM LDL 65 09/03/2023 08:35 AM LDLCALC 52 02/25/2023 09:25 AM LDLCALC 63 01/04/2022 08:28 AM ALT 24 09/03/2023 08:35 AM ALT 16 01/04/2022 08:28 AM documented in this encounter Plan of Treatment Upcoming Encounters Date Type Department Care Team (Late st Contact Info) Description 04/02/2024 10:15 AM EST Office Visit Family Medicine, [facility] [address] [place] [address] [place] [phone] Hector Hewitt MD [facility] [place] [phone] 08/12/2024 3:00 PM EDT Cardiac Studies Cardiology [facility] [address] [place] [address] Clinic, Heart Rhythm Device [address] [place] [address] 11/02/2024 11:00 AM EDT Nurse Only [facility] [address] [place] [address] [place] [phone] [facility] Scheduled Procedures Name Priority Associated Diagnoses Date/Ti me COLONOSCOPY FLEXIBLE PROXIMA L DIAGNOSTIC Recall Family history of colon cancer Health Maintenance Due Date Last Done Comments Influenza Vaccine (FLU shot) (#1) 2023 03/03/2023, 01/10/2022, 12/25/2020, Additional history exists GFR 09/02/2024 09/03/2023, 11/2023, 02/25/2023, Additional history exists Depression Screening [...] this encounter Medical Devices Implanted Type Area Order Management Specialist Device Identifier Shelf Expiration Date Model / Serial / Lot Lead Novus Bipolar 52cm - [id number] Implanted:Qty: 1 on 02/20/2021 by Ginger Christensen MD at [facility] [employer] : CRM [id number] 11/09/2022 5076- 52 / [id number] / [id number] Lead [employer] Quattro Secure - [id number] Implanted:Qty: 1 on 02/20/2021 by Ginger Christensen MD at [facility] [employer] : CRM [id number] 11/07/2022 22426 5 / [id number] / [id number] documented as of this encounter Visit Diagnoses Diagnosis Dyslipidemia, goal LDL below 70 Other and unspecified hyperlipidemia documented in this encounter Care Teams Orientor Relationship Specialty Start Date End Date Hector Hewitt MD [facility] [place] [phone] PCP - General Family Medicine 12/30/22 documented as of this encounter
--- OUTSIDE RECORDS SUMMARY | 2023-12-03 06:11 | External Medical Summary | Summary of Care ---
Author Name Unknown Organization [facility] Address [address] [facility] [place] [address] Phone [phone] Care Team Providers Care Social Psychologist Name Role Phone Hector Hewitt MD Primary Care Provider [phone] Reason for Visit * Reason Onset Date Comments Fax 11/26/2023 Encounter Details Date Type Department Care Team (Late st Contact Info) Description 11/26/2023 Telephone Cardiology [facility] [address], [place] [phone] Nancy Hernandez CRNP [address] [place] [phone] Fax Allergies Active Allergy Reactions Criticality Noted Date Comments Amoxicillin Diarrhea 08/30/2016 Amoxicillin-Pot Clavulanate 08/29/19 23 Bee Venom Edema airway High 11/01/2016 documented as of this encounter (statuses as of 11/27/2023) Medications Medication Sig Dispensed Refills Start Date [...] Capsule by mouth in the morning. Active [facility] Gummy 50-45-3.8 MG Oral Tablet Chewable (Elderberry-Vitamin C-Zinc) Take 1 Each by mouth daily. Active documented as of this encounter (statuses as of 11/27/2023) Active Problems Problem Noted Date Diagnosed Date CAD in [place] artery 08/31/2022 Gastroesophageal reflux disease 08/31/2022 Hyperlipidemia 08/31/2022 Hypertension 08/31/2022 S/P coronary artery stent placement 08/31/2022 S/P ICD (internal cardiac defibrillator) procedu re 08/31/2022 Screening PSA (prostate specific antigen) 2022 Systolic CHF, chronic 02/09/2021 Overview: Added automatically from request for surgery [id number] documented as of this encounter (statuses as of 11/27/2023) Immunizations Name Administration Dates Next Due COVID-19 mRNA, LNP-s, No Pre serve, 2-Dose Series ([employer]) 06/02/2020,05/12/2020 DTaP Dipth/Tet/Acell Pertussis (Infan[employer]), Peds 07/12/2018 [...] No 10/30/2023 Does the household have a [facility] source of income? (Household - for ages [...] Telephone Encounter - Nancy Hernandez CRNP - 11/27/2023 5:19 PM EDT Please send addended cardiac clearance to roselia Hall MD. Please use the 11/17/23 office encounter. * Telephone Encounter - Santiago Cummins OSA - 11/27/2023 8:58 AM EDT Mary from [facility] called back. PH [phone] Needs office note amended to state that after recent echo of heart (11.19.23), patient is [or] is not cleared for surgery. FAX [phone] Patient is scheduled for surgery, 9.02.14 * Telephone Encounter - Radha Palma OSA - 11/26/2023 10:33 AM EDT Person calling: Conchis Relationship to patient: [facility] Phone/Fax to return call: [phone] Reason for call(brief): needs clearance for surgery on 12-03-2023 Pharmacy: Provider Name:mary Detailed message to office:needs clearance for surgery faxed to [phone] documented in this encounter Plan of Treatment Upcoming Encounters Date Type Department Care Team (Late st Contact Info) Description 04/02/2024 10:15 AM EST Office Visit [facility]ardo V[facility] [address] [place] [phone] Hector Hewitt MD [facility] [place] [phone] 08/12/2024 3:00 PM EDT Cardiac Studies Cardiology [facility] [address] [place] [address] Clinic, Heart Rhythm Device [address] [place] [address] 11/02/2024 11:00 AM EDT Nurse Only Eduardo Varela [address] [place] [phone] [facility] Scheduled Procedures Name Priority Associated Diagnoses Date/Ti [...] this encounter Medical Devices Implanted Type Area Saddle Cutter Device Identifier Shelf Expiration Date Model / Serial / Lot Lead Novus Bipolar 52cm - [id number] Implanted:Qty: 1 on 02/20/2021 by Ginger Christensen MD at [facility] [employer] : CRM [id number] 11/09/2022 5076- 52 / [id number] / [id number] Lead [employer] Quattro Secure - [id number] Implanted:Qty: 1 on 02/20/2021 by Ginger Christensen MD at [facility] [employer] : CRM [id number] 11/07/2022 05851 5 / [id number] / [id number] documented as of this encounter Care Teams Social Psychologist Relationship Specialty Start Date End Date Hector Hewitt MD [facility] [place] [phone] PCP - General Family Medicine 12/30/22 documented as of this encounter
--- OUTSIDE RECORDS SUMMARY | 2023-12-03 06:11 | External Medical Summary | Summary of Care ---
Author Name Unknown Organization [facility] Address [address] [address] Phone [phone] Care Team Providers Care Periodicals Library Assistant Name Role Phone Hector Hewitt MD Primary Care Provider [phone] Reason for Referral * Precert (Diagnostic Medical) (Within 10 days (routine)) - Authorized Specialty Diagnoses / Procedures Referred By Contac t Referred To Contact Cardiac Studies Diagnoses Pre-operative cardiovascular examination Heart failure, systolic, due to CAD (HCC) HTN, goal below 130/80 ICD (implantable cardioverter-defibrillator), dual, in situ Ischemic cardiomyopathy Dyslipidemia, goal LDL below 70 Procedures ECHO, COMPLETE (2D), TRANS-THORACIC Nancy Hernandez CRNP [address] [place] [address] Referral ID Status Reason Start Date Expiration Date V isits Requested Visits Authorized [id number] Authorized Precert 11/17/2023 12/18/2023 999 999 Reason for Visit * Reason Comments Follow Up Pre-op Clearance Encounter Details Date Type Department Care Team (Late st Contact Info) Description 11/17/2023 3:15 PM EDT Office Visit Cardiology, [facility] [address] [place] [address] Nancy Hernandez CRNP [address], [place] [phone] Pre-operative cardiovascular examination*; Heart failure, systolic, due to CAD (HCC); HTN, goal below 130/80; ICD (implantable cardioverter-defibrilla tor), dual, in situ; Ischemic cardiomyopathy; Dyslipidemia, goal LDL below 70 Allergies Active [...] Capsule by mouth in the morning. Active [employer] Immune Health Gummy 50-45-3.8 MG Oral Tablet Chewable (Elderberry-Vitam in C-Zinc) Take 1 Each by mouth daily. Active Rosuvastatin Calcium 40 MG Oral Tablet (Crestor)Indicati ons:Dyslipidemia, goal LDL below 70 Take 1 Tablet by mouth in the morning. 90 Tablet 3 11/22/2022 Discontinue d(Refill) documented as of this encounter (statuses as of 11/27/2023) Active Problems Problem Noted Date Diagnosed Date CAD in pala artery 08/31/2022 Gastroesophageal reflux disease 08/31/2022 Hyperlipidemia 08/31/2022 Hypertension 08/31/2022 S/P coronary artery stent placement 08/31/2022 S/P ICD (internal cardiac defibrillator) procedu re 08/31/2022 Screening PSA (prostate specific antigen) 2022 Systolic CHF, chronic 02/09/2021 Overview: Added automatically from request for surgery [id number] documented as of this encounter (statuses as of 11/27/2023) Immunizations Name Administration Dates Next Due COVID-19 mRNA, LNP-s, No Pre serve, 2-Dose Series (Polisofia) 06/02/2020,05/12/2020 DTaP Dipth/Tet/Acell Pertussis (Infanrix), Peds 07/12/2018 [...] on file documented as of this encounter Last Filed Vital Signs Vital Sign Reading Time Taken Comments Blood Pressure 130/74 11/17/2023 2:58 PM EDT Pulse 75 11/17/2023 2:58 PM EDT Temperature - - Respiratory Rate 18 11/17/2023 2:58 PM EDT Oxygen Saturation 97% 11/17/2023 2:58 PM EDT Inhaled Oxygen Concentration - - Weight 90.3 kg (199 lb 1.6 oz) 11/17/2023 2:58 P M EDT Height - - Body Mass Index 27.77 08/31/2023 2:40 AM EDT documented in this encounter Patient Instructions * Patient Instructions* Nancy Hernandez CRNP - 11/17/2023 3:52 PM EDT Please continue aspirin 81 mg daily and metoprolol ER 100 mg and take the morning of surgery Please hold triamterene-HCTZ the morning of surgery Echo alejandra documented in this encounter Progress Notes * Nancy Hernandez CRNP - 11/17/2023 3:15 PM EDT Images from the original note were not included. Addendum 11/27/23: Below TTE from 11/19/23 reveals an improved LV function. He is still an acceptable cardiac risk for Right total knee surgery. His RCRI cardiac risk score for surgery is 2 points which is 10.1% 30 day risk of , NM, or cardiac arrest with general anesthesia. If his surgery could be completed with spinal epidural instead of general anesthesia, his cardiac risk would improve. Therefore, at this time, he would be an acceptable risk to complete knee surgery if spinal epidural anesthesia could be used. General anesthesia would be high risk from a cardiac risk standpoint. STEEVN Stokes TTE 11/19/23: Interpretation Summary The examination is limited quality but adequate for evaluation of the referral indication. The findings are consistent with ischemic cardiomyopathy. There is a large sized apical, anteroseptal, and anterior wall motion abnormality with hypokinesis to dyskinesis of the segments. 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 The left ventricular systolic function is mildly to moderately reduced with an EF of around 40% Calculated LV ejection Fraction = 40% (bi-plane method of discs). The right ventricular systolic function is qualitatively normal. Mild to moderate aortic valve regurgitation is present. Mild mitral regurgitation is present. The proximal ascending thoracic aorta is mildly enlarged. Left Ventricle Calculated LV ejection Fraction = 40% (bi-plane method of discs). The left ventricular cavity is normal sized (LVED volume 34- 74 ml/m^2). The LV wall thickness is moderately increased (concentric). The basal septum is thickened and angulated consistent with sigmoid septum. There is no left ventricular mural thrombus. Right Ventricle Catheter seen in the right ventricle. The right ventricular cavity size is normal (basal dimension < 4.2 cm RV apical 4 chamber view). The right ventricular systolic function is qualitatively normal. Atria The left atrium is normal sized (< 35 ml/m^2). The left atrial appendage is inadequately visualized. The right atrial size is normal (<18 cm^2). Diastolic Function The left ventricular diastolic function is mildly abnormal (grade I). Aortic Valve The aortic valve has three leaflets. There is aortic valve sclerosis without stenosis. Mild to moderate aortic valve regurgitation is present. Mitral Valve There is mitral sclerosis without mitral stenosis . There is mild mitral annular calcification. Mild mitral regurgitation is present. Tricuspid Valve The tricuspid valve anatomy is normal. Tricuspid stenosis is absent. Trivial tricuspid regurgitation is present. The signal is inadequate to calculate pulmonary artery systolic pressure. Pulmonary Valve The pulmonary valve is inadequately visualized but the Doppler data is adequate for interpretation.. Pulmonic stenosis is absent. There is no significant pulmonary regurgitation. Pericardium A trivial circumferential pericardial effusion is noted. Vessels The proximal ascending thoracic aorta is mildly enlarged. The aortic root is normal sized. Cardiology Outpatient Clinic Note 11/17/2023 CC: Pre op clearance for right total knee replacement with Babar Hall MD with Type of Anesthesia: with planned Spinal anesthesia. Yonatan Washington is a 78 year old male, with history of HFrEF/CAD, Medtronic ICD placed 02/20/21 (no shocks, normal function with 9 years battery life) in clinic today for pre operative evaluation prior to non cardiac surgery for Right TKR . His ortho surgeon is requesting an updated TTE done prior to surgery. I reviewed the cardiac testing and records in detail during today's office visit. He was evaluated in [facility] 08/31/23 with dizziness, nausea and vomiting and diarrhea. Provided with 500 mL normal saline bolus and meclizine with improvement in symptoms. Hypokalemia repleted orally. Trop negative. 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 CARDIAC HISTORY: CAD: He remains very active despite NM dating back probably to 2016. 2018 PCI/Stent [facility] at [facility]; Last [facility] repeated in 2018. He had a cardiac work up in 2018 consisting of cardiac MRI which showed extensive LAD scar. His ejection fraction has been in the 30-35% range with last echo 01/01/2021 (no updated TTE). Licensed Practical Nurse images were reviewed from 2018. The LAD chronic total occlusion is favorable for crossing with a wire but the patient is asymptomatic and viability study did not show any viable tissue in the anterior wall, thus he continues with medical therapy. EF 30 to 35% with anterior infarct without any significant residual ischemia and chronic total occlusion of the left anterior descending artery with ipsilateral collaterals. Cardiac Stress MRI 2018 Interpretation Summary 1. Stress MRI findings of large fixed perfusion defect (infarction) in the mid to distal anterior, septal and apical segments. There is also an evidence of reversible, stress-induced perfusion defectin the basal to mid lateral segments. 2. The left ventricular systolic function is moderately reduced. The calculated LV ejection fraction is 38%. There is no LV thrombus. There is a large sized apical, septal, anteroseptal, anterior, and lateral wall motion abnormality with hypokinesis to dyskinesis of the segments. 3. Myocardial infarction noted in multi vascular territories (predominantly involving the left anterior descending artery territory, with small areas of infero-septal, inferior and partial papillary muscle infarctions). - Viability assessment: Anterior wall is viable only in the basal segment. Anteroseptal wall is viable in the basal to mid segments, non viable distally . Anterolateral wall is viable except the apical segment . Inferoseptal wall is viable in the basal to mid segments, non viable distally . Inferior wall is viable in the basal to mid segments, non viable distally. Inferolateral wall is viable in the basal to mid segments, non viable distally . The apical segment is scarred (>75%) and nonviable. 4. The right ventricle is normal in size and systolic function. The calculated RV ejection fractionis 64% 01/01/2021 echo - LVEF 30-35% 02/20/2021 dual chamber ICD (MDT) He denies a history of a DVT/PE. He denies a history of a CVA, arrhythmias, completing a carotid ultrasound recently. 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 Yonatan Gallardo Felix exercise tolerance seems good. Effort tolerance: Able to climb 1 flight of stairs without shortness of breath or chest pain. Walksoutside and swims daily without symptoms. His cardiac history/risk factors is significant for: (+) Previous NM (+) Previous CABG/PCI/Stents (+) ICD (no) Diabetes Mellitus (+) Hypertension (+) Dyslipidemia (+) Hx of remoter Tobacco use (no) Other vascular disease (+) Renal insufficiency (CKD stage 2) (+) Family history of premature CAD (no)Sedentary Lifestyle (no) Stroke/TIA (+) Age greater than 50 years (+) History of compensated or prior heart failure Review of Systems Constitutional: Negative for fatigue and unexpected weight change. HENT: Negative. Eyes: Negative. Negative for discharge. Cardiovascular: Negative for chest pain, palpitations and leg swelling. Gastrointestinal: Negative. Negative for abdominal distention, abdominal pain, anal bleeding, bloodin stool, constipation, diarrhea, nausea, rectal pain and vomiting. Genitourinary: Positive for hematuria (possible microscopic hematuria). Musculoskeletal: Positive for arthralgias (right knee pain). Negative for back pain and joint swelling. Neurological: Negative for tremors, numbness and headaches. Psychiatric/Behavioral: Negative. BP Readings from Last 4 Encounters: 11/17/23 130/74 11/17/23 102/64 10/30/23 132/80 09/02/23 118/78 . Wt Readings from Last 4 Encounters: 11/17/23 90.3 kg (199 lb 1.6 oz) 11/17/23 90.4 kg (199 lb 6.4 oz) 10/30/23 91.8 kg (202 lb 6.4 oz) 09/02/23 90.4 kg (199 lb 6.4 oz) Current Outpatient Medications Medication Sig Dispense Refill Aspirin 81 MG Oral Tablet Delayed Release Take 1 Tablet by mouth in the morning. Rosuvastatin Calcium 40 MG Oral Tablet (Crestor) Take 1 Tablet by mouth in the morning. (Patient taking differently: Take 1 Tablet by mouth every evening.) 90 Tablet 3 Metoprolol Succinate ER 100 MG Oral Tablet Extended Release 24 Hour (toPROL XL) TAKE 1 TABLET BY MOUTH IN THE MORNING 90 Tablet 3 Lisinopril 10 MG Oral Tablet (Prinivil) TAKE 1 TABLET BY MOUTH IN THE MORNING 90 Tablet 3 Triamterene-HCTZ 37.5-25 MG Oral Tablet ((Maxzide-25)) TAKE 1 TABLET BY MOUTH DAILY 90 Tablet 3 Fluticasone Propionate 50 MCG/ACT Nasal Suspension (Flonase) USE 2 SPRAYS IN BOTH NOSTRILS ONCE DAILY 48 g 3 Tadalafil 20 MG Oral Tablet (Cialis) Take 1 Tablet by mouth daily as needed for Erectile Dysfunction. (Patient taking differently: Take 1 Tablet by mouth in the morning.) 30 Tablet 5 Pantoprazole Sodium 40 MG Oral Tablet Delayed Release (Protonix) TAKE 1 TABLET BY MOUTH EVERY OTHERDAY 45 Tablet 3 Centrum Silver 50+Men Oral Tablet Take 1 Tablet by mouth daily. Acetaminophen 500 MG Oral Tablet (Tylenol Extra Strength) Take 2 Tablets by mouth every 6 hours as needed for Pain, Moderate. Culturelle Digestive Daily Oral Capsule Take 1 Capsule by mouth in the morning. Lingt Gummy 50-45-3.8 MG Oral Tablet Chewable (Elderberry- Vitamin C-Zinc) Take 1Each by mouth daily. No current facility-administered medications for this visit. Review of patient's allergies indicates: Allergen Reactions Bee Venom Edema airway Amoxicillin Diarrhea Augmentin [Amoxicillin-Pot Clavulanate] Past Medical History: Diagnosis Date Arthritis Family history of colon cancer H/O varicose veins HLD (hyperlipidemia) HTN (hypertension) Lyme arthritis (HCC) Measles Mumps Past Surgical History: Procedure Laterality Date ARTHROPLASTY KNEE TOTAL COLONOSCOPY 08/01/2006 COLONOSCOPY, DIAGNOSTIC (RECTUM) N/A 05/10/2022 COLONOSCOPY FLEXIBLE PROXIMAL DIAGNOSTIC performed by Thomas Kilgore DO at [facility] INSERT/REPLACE DEFIBRILLATOR W/TRANSVERSE LEAD(S) Left 02/20/2021 DUAL CHAMBER DEFIBRILLATOR performed by Ginger Christensen MD at [facility] REMOVAL OF TONSILS, UNDER AGE 13 Family History Problem Relation Name Age of Onset Diabetes Mother Other (Thyroid disease) Mother Cancer Father Colon cancer Sister Ulcerative colitis Sister Coronary Artery disease Uncle (Maternal) NM 50 Social History Tobacco Use Smoking status: Former Types: Cigarettes Smokeless tobacco: Never Vaping Use Vaping status: Never Used Substance Use Topics Alcohol use: Yes Comment: occas Drug use: No Labwork (reports reviewed by me) Latest Reference Range & Units 09/03/23 08:35 Triglycerides <=174 mg/dL 82 Cholesterol <200 mg/dL 122 Non-HDL Cholesterol <=159 mg/dL 81 HDL Cholesterol >39 mg/dL 41 LDL Cholesterol <=129 mg/dL 65 Sodium 135 - 146 mmol/L 138 Potassium 3.5 - 5.1 mmol/L 4.5 Chloride 98 - 107 mmol/L 99 CO2 22 - 32 mmol/L 28 BUN 6 - 20 mg/dL 15 Creatinine 0.6 - 1.2 mg/dL 1.2 Estimated Glomerular Filtration Rate >=60 mL/min 65 Anion Gap 7 - 15 mmol/L 11 Glucose 70 - 120 mg/dL 116 Calcium 8.4 - 10.2 mg/dL 10.3 (H) Protein 6.0 - 8.3 g/dL 6.9 TSH 0.27 - 4.20 uIU/mL 1.29 TSH WITH FREE T4 IF INDICATED Rpt CBC Rpt ! WBC 4.00 - 10.80 K/uL 6.91 RBC 4.50 - 5.25 M/uL 4.46 HGB 14.0 - 16.8 g/dL 13.7 (L) HCT 40.0 - 48.4 % 41.3 MCV 82.0 - 99.5 fL 92.6 MCH 27.0 - 34.0 pg 30.7 MCHC 32.0 - 36.0 g/dL 33.2 RDW 11.5 - 15.5 % 13.2 PLT 140 - 400 K/uL 220 MPV 6.6 - 11.1 fL 10.7 CBC WITH WBC DIFFERENTIAL Rpt ! Absolute Neutrophils 1.80 - 7.70 K/uL 4.72 Absolute Lymphocytes 1.00 - 4.80 K/ul 0.99 (L) Absolute Monocytes 0.00 - 1.10 K/uL 0.92 Absolute Eosinophils 0.00 - 0.70 K/uL 0.21 Absolute Basophils 0.00 - 0.20 K/uL 0.05 Albumin 3.8 - 5.0 g/dL 4.5 AST 10 - 50 U/L 26 ALT 10 - 50 U/L 24 Alkaline Phosphatase 35 - 130 U/L 43 Bilirubin, Total <=1.2 mg/dL 1.0 PSA <4.10 ng/mL 2.55 Data: Remote ICD check 09/01/23: 11/17/23 EKG: XR FOOT 3 OR MORE VIEWS Narrative: EXAM XR FOOT 3 OR MORE VIEWS-12/31/2022 2:34 pm HISTORY right foot pain with no known injury or falls TECHNIQUE Three views of the RT/STAND foot. COMPARISON 12/30/2022. FINDINGS No acute fracture or dislocation. Normal alignment. Hypertrophic changes of the great toe MTP joint, IP joints. Preserved joint spaces. Redemonstrated ill- defined possible lucency at the medial aspect of the 5th proximal phalanx base, favored to represent projection artifact. No focal soft tissue swelling. Impression: IMPRESSION No acute fracture or dislocation. Redemonstrated ill-defined possible lucency at the medial aspect of the 5th proximal phalanx base, favored to represent projection artifact, may correlate for focal tenderness. Physical Exam: Today's vital signs: BP 130/74 | Pulse 75 | Resp 18 | Wt 90.3 kg (199 lb 1.6 oz) | SpO2 97% | BMI 27.77 kg/m | BSA 2.13 m Physical Exam Constitutional: Appearance: Normal appearance. HENT: Head: Normocephalic and atraumatic. Nose: Nose normal. Mouth/Throat: Mouth: Mucous membranes are moist. Eyes: Extraocular Movements: Extraocular movements intact. Conjunctiva/sclera: Conjunctivae normal. Cardiovascular: Rate and Rhythm: Regular rhythm. Pulses: Normal pulses. Heart sounds: Murmur (grade 2/6 down LSB) heard, radiating to his carotids No gallop. Comments: (-) JVD (+) bilat carotid bruits (+) trace bilat LE edema Pulmonary: Effort: Pulmonary effort is normal. Breath sounds: Normal breath sounds. No wheezing or rales. Abdominal: General: Abdomen is flat. Palpations: Abdomen is soft. Musculoskeletal: General: Normal range of motion. Cervical back: Normal range of motion and neck supple. Skin: General: Skin is warm and dry. Neurological: Mental Status: He is alert and oriented to person, place, and time. Psychiatric: Mood and Affect: Mood normal. Behavior: Behavior normal. Impression and Plan: 1. Pre-operative cardiovascular examination for right Total knee replacement - EKG today reveals old/known anteroseptal infarct and no ischemia -He remains without SOB or chest pain in his activities -Last LVEF is 30-35% range with last echo 01/01/2021 and his viability study did not show any viable tissue in the anterior wall, thus we do not expect improvement on his LV function. -His RCRI cardiac risk score for surgery is 2 points which is 10.1% 30 day risk of , NM, or cardiac arrest with general anesthesia. If his surgery could be completed with spinal epidural insteadof general anesthesia, his cardiac risk would improve. Therefore, at this time, he would be an acceptable risk to complete knee surgery if spinal epidural anesthesia could be used. General anesthesiawould be high risk from a cardiac risk standpoint. -I plan to addend this note with his upcoming echocardiogram result -I asked him to continue ASA 81 mg daily and metoprolol ER 100 mg on the morning of surgery to protect his heart. He may hold his triamterene-HCTZ the morning of surgery. 2. Heart failure, systolic, due to CAD (HCC) -He is asymptomatic and euvolemic and no further cardiac testing is required at this time. -continue lisinopril, metoprolol 3. HTN, goal below 130/80 -continue triamterene-HCTZ, metoprolol and lisinopril (stage II CKD) 4. Medtronic ICD (implantable cardioverter-defibrillator), dual, in situ -For knee surgery, you may turn off the shocking portion of the ICD and turn back on after surgery. 5. Ischemic cardiomyopathy -for upcoming TTE but his baseline EF is 30-35%; on BB and CORDELIA inhibitor -BP control according to JNC guidelines -Exercise and weight stable 6. Dyslipidemia, goal LDL below 70 -Continue Rosuvastatin 40 mg daily; lipids acceptable with LDL 65 Discussed risk factor modification to include: maintaining an appropriate weight, regular aerobic exercise of at least 30 minutes most days of the week, keeping SBP < 130, LDL < 70, and taking prescribed medications. Discussed when to go to the ED. If Yonatan Washington has significant symptoms such as severe shortness of breath, diaphoresis, lightheadedness, chest pain, near syncope or syncope then someone should take Yonatan Washington to the ED or Yonatan Washington should call 911. Patient advised to call me if he/she does not hear back from me regarding any testing done/ordered.Explained I will always make contact with the patient once I receive the results but if they do notcome back to me, my safety net is the patient who should call me if they hear nothing within 1-2 weeks. Return in about 6 months (around 05/19/2024). I spent a total of Greater than 55 mins (exact time 64 mins) on the date of service in preparation,delivery, and documentation of the care provided to Yonatan Washington excluding any time spent in the performance of separately billed services or time spent by another provider/QHP. STEVEN Stokes documented in this encounter Procedure Notes * Mahendra Quintero, - 11/17/2023 2:51 PM EDTAssociated Order(s): EKG REASON FOR STUDY: pre op;pre op CONCLUSIONS: Sinus rhythm with 1st degree AV block Left axis deviation Anteroseptal infarct (cited on or before 09-Feb-2021) When compared with ECG of 31-Aug-2023 03:47, No significant change was found Ventricular Rate: 70 Atrial Rate: 70 DC Interval: 250 QRS Duration: 108 QT/QTc: 374/403 ms P-R-T [place]: 13 : -55 : 57 degrees documented in this encounter Plan of Treatment Upcoming Encounters Date Type Department Care Team (Late st Contact Info) Description 04/02/2024 10:15 AM EST Office Visit Eduardo Varela [address] [place] [phone] Hector Hewitt MD [facility] [place] [id number] 08/12/2024 3:00 PM EDT Cardiac Studies Cardiology [facility] [address] [place] [address] Clinic, Heart Rhythm Device [address] [place] [address] 11/02/2024 11:00 AM EDT Nurse Only Family Morgan [address] [place] [phone] [place] Pending Results Name Type Priority Associated Diagnoses Date /Time ECHO, COMPLETE (2D), TRANS-THORACIC Echocardiology Routine Pre-operative cardiovascular examination Heart failure, systolic, due to CAD (HCC) HTN, goal below 130/80 ICD (implantable cardioverter-defibrillat or), dual, in situ Ischemic cardiomyopathy Dyslipidemia, goal LDL below 70 11/19/2023 1:21 PM EDT Scheduled Procedures Name Priority Associated Diagnoses Date/Ti me COLONOSCOPY FLEXIBLE PROXIMA L DIAGNOSTIC Recall Family history of colon cancer Health Maintenance Due Date Last Done Comments Influenza Vaccine (FLU shot) (#1) 2023 03/03/2023, 01/10/2022, 12/25/2020, Additional history exists GFR 09/02/2024 09/03/2023, 0611/2023, 02/25/2023, Additional history exists Depression Screening 10/29/2024 [...] this encounter Medical Devices Implanted Type Area Final Rail Cutter Device Identifier Shelf Expiration Date Model / Serial / Lot Lead Novus Bipolar 52cm - [id number] Implanted:Qty: 1 on 02/20/2021 by Ginger Christensen MD at [facility] [employer] : CRM [id number] 11/09/2022 5076- [id number] / [id number] / [id number] Lead Sprint Quattro Secure - [id number] Implanted:Qty: 1 on 02/20/2021 by Ginger Christensen MD at [facility] [employer] : CRM [id number] 11/07/2022 [id number] 5 / [id number] / [id number] documented as of this encounter Procedures Procedure Name Priority Date/Time Associated Diagnosis Comments DC ECG ROUTINE ECG W/LEAST 12 LDS W/I&R Routine 11/17/2023 2:51 PM EDT Pre-operative cardiovascular examination Heart failure, systolic, due to CAD (HCC) HTN, goal below 130/80 ICD (implantable cardioverter-defibrill ator), dual, in situ Ischemic cardiomyopathy Dyslipidemia, goal LDL below 70 documented in this encounter Results * EKG (11/17/2023 2:51 PM EDT) 11/17/2023 2:51 PM EDT Narrative Procedure Note Mahendra Quintero DO - 11/17/2023 2:51 PM EDT REASON FOR STUDY: pre op;pre op CONCLUSIONS: Sinus rhythm with 1st degree AV block Left axis deviation Anteroseptal infarct (cited on or before 09-Feb-2021) When compared with ECG of 31-Aug-2023 03:47, No significant change was found Ventricular Rate: 70 Atrial Rate: 70 DC Interval: 250 QRS Duration: 108 QT/QTc: 374/403 ms P-R-T [place]: 13 : -55 : 57 degrees Nancy HARRIS EKG [facility] documented in this encounter Visit Diagnoses Diagnosis Pre-operative cardiovascular examination- Primary Heart failure, systolic, due to CAD (HCC) Unspecified systolic heart failure HTN, goal below 130/80 Unspecified essential hypertension ICD (implantable cardioverter-defibrillator), dual, in situ Ischemic cardiomyopathy Other specified forms of chronic ischemic heart disease Dyslipidemia, goal LDL below 70 Other and unspecified hyperlipidemia documented in this encounter Care Teams Periodicals Library Assistant Relationship Specialty Start Date End Date Hectro Hewitt MD [facility] [place] [address] PCP - General Family Medicine 12/30/22 documented as of this encounter"
--- OUTSIDE RECORDS SUMMARY | 2023-12-03 06:11 | External Medical Summary | Summary of Care ---
Author Name Unknown Organization [facility] Address [address] [facility] [place] [address] Phone [phone] Care Team Providers Care Escrow Processor Name Role Phone Hector Hewitt MD Primary Care Provider [phone] Reason for Visit * Reason Onset Date Comments Fax 11/26/2023 Encounter Details Date Type Department Care Team (Late st Contact Info) Description 11/26/2023 Telephone Cardiology [facility] [address], [place] [id number] Nancy Hernandez CRNP [address] [place] [phone] Fax Allergies Active Allergy Reactions Criticality [...] Capsule by mouth in the morning. Active [employer] Gummy 50-45-3.8 MG Oral Tablet Chewable (Elderberry-Vitamin C-Zinc) Take 1 Each by mouth daily. Active documented as of this encounter (statuses as of 11/27/2023) Active Problems Problem Noted Date Diagnosed Date CAD in [place] artery 08/31/2022 Gastroesophageal reflux disease 08/31/2022 Hyperlipidemia 08/31/2022 Hypertension 08/31/2022 S/P coronary artery stent placement 08/31/2022 S/P ICD (internal cardiac defibrillator) procedu re 08/31/2022 Screening PSA (prostate specific antigen) 2022 Systolic CHF, chronic 02/09/2021 Overview: Added automatically from request for surgery [id number] documented as of this encounter (statuses as of 11/27/2023) Immunizations Name Administration Dates Next Due COVID-19 mRNA, LNP-s, No Pre serve, 2-Dose Series ([employer]) 06/02/2020,05/12/2020 DTaP Dipth/Tet/Acell Pertussis (Infanrix), Peds 07/12/2018 [...] No 10/30/2023 Does the household have a [facility] source of income? (Household - for [...] - 11/27/2023 8:58 AM EDT Mary from [facility] called back. PH [phone] Needs office note amended to state that after recent echo of heart (11.19.23), patient is [or] is not cleared for surgery. FAX [phone] Patient is scheduled for surgery, 9.02.14 * Telephone Encounter - Radha Palma OSA - 11/26/2023 10:33 AM EDT Person calling: Conchis Relationship to patient: [facility] orth[facility] Phone/Fax to return call: [phone] Reason for call(brief): needs clearance for surgery on 12-03-2023 Pharmacy: Provider Name:mary Detailed message to office:needs clearance for surgery faxed to [phone] documented in this encounter Plan of Treatment Upcoming Encounters Date Type Department Care Team (Late st Contact Info) Description 04/02/2024 10:15 AM EST Office Visit Eduardo Varela [address] [place] [phone] Hector Hewitt MD [facility] [place] [address] 08/12/2024 3:00 PM EDT Cardiac Studies Cardiology [facility] [address] [place] [address] Clinic, Heart Rhythm Device [address] [place] [address] 11/02/2024 11:00 AM EDT Nurse Only Eduardo Varela [address] [place] [phone] [facility] Scheduled Procedures Name Priority Associated Diagnoses Date/Ti [...] this encounter Medical Devices Implanted Type Area Soil Technician Device Identifier Shelf Expiration Date Model / Serial / Lot Lead Novus Bipolar 52cm - [id number] Implanted:Qty: 1 on 02/20/2021 by Ginger Christensen MD at [facility] [employer] : CRM [id number] 11/09/2022 5076- 52 / [id number] / [id number] Lead Sprint Quattro Secure - [id number] Implanted:Qty: 1 on 02/20/2021 by Ginger Christensen MD at [facility] [employer] : CRM [id number] 11/07/2022 [id number] / [id number] / [id number] documented as of this encounter Care Teams Escrow Processor Relationship Specialty Start Date End Date Hector Hewitt MD [facility] [place] [address] PCP - General Family Medicine 12/30/22 documented as of this encounter
--- OUTSIDE RECORDS SUMMARY | 2023-12-03 06:11 | External Medical Summary | Summary of Care ---
Author Name Unknown Organization [facility] Address [address] [facility] [place] [address] Phone [phone] Care Team Providers Care Compensation Administrator Name Role Phone Hector Hewitt MD Primary Care Provider Encounter Details Date Type Department Care Team (Late st Contact Info) Description 11/19/2023 Orders Only Unspecified Department Hector Hewitt MD [facility] [place] [address] Allergies Active Allergy Reactions Criticality Noted Date Comments Amoxicillin Diarrhea 08/30/2016 Amoxicillin-Pot Clavulanate 08/29/19 23 Bee Venom Edema airway High 11/01/2016 documented as of this encounter (statuses as of 11/20/2023) Medications Medication Sig Dispensed Refills Start Date End Date Status Aspirin 81 MG Oral Tablet Delayed Release Take 1 Tablet by mouth in the morning. Active Rosuvastatin Calcium 40 MG Oral Tablet (Crestor)Indication s:Dyslipidemia, goal LDL below 70 Take 1 Tablet by mouth in the morning. 90 Tablet 3 11/22/2022 Active Additional Information Patient taking differently:40 mg OralQPM-1999, Reported on 06/10/2023 Metoprolol Succinate ER 100 MG Oral Tablet [...] Capsule by mouth in the morning. Active [employer] Gummy 50-45-3.8 MG Oral Tablet Chewable (Elderberry-Vitamin C-Zinc) Take 1 Each by mouth daily. Active documented as of this encounter (statuses as of 11/20/2023) Active Problems Problem Noted Date Diagnosed Date CAD in [employer] artery 08/31/2022 Gastroesophageal reflux disease 08/31/2022 Hyperlipidemia 08/31/2022 Hypertension 08/31/2022 S/P coronary artery stent placement 08/31/2022 S/P ICD (internal cardiac defibrillator) procedu re 08/31/2022 Screening PSA (prostate specific antigen) 2022 Systolic CHF, chronic 02/09/2021 Overview: Added automatically from request for surgery [id number] documented as of this encounter (statuses as of 11/20/2023) Immunizations Name Administration Dates Next Due COVID-19 [...] No 10/30/2023 Does the household have a [facility] source [facility] income? (Household - for [...] on file documented as of this encounter Plan of Treatment Upcoming Encounters Date Type Department Care Team (Late st Contact Info) Description 04/02/2024 10:15 AM EST Office Visit Family Medicine, Eduardo [facility] [address] [place] [address] [place] [phone] [facility] [address] [place] [address] 08/12/2024 3:00 PM EDT Cardiac Studies Cardiology [facility] [address] [facility] [place] [address] Clinic, Heart Rhythm Device [address] [facility] [place] [address] 11/02/2024 11:00 AM EDT Nurse Only Eduardo Varela [facility] [address] [place] [address] [place] [phone] [employer] [...] this encounter Medical Devices Implanted Type Area Animal Trainer Supervisor Device Identifier Shelf Expiration Date Model / Serial / Lot Lead Novus Bipolar 52cm - [id number] Implanted:Qty: 1 on 02/20/2021 by Ginger Christensen MD at [facility] [employer] : CRM [id number] 11/09/2022 5076- 52 / [id number] / [id number] Lead Sprint Quattro Secure - [id number] Implanted:Qty: 1 on 02/20/2021 by Ginger Christensen MD at [facility] [employer] : CRM [id number] 11/07/2022 [id number] / [id number] / [id number] documented as of this encounter Procedures Procedure Name Priority Date/Time Associated Diagnosis Comments ECHO, COMPLETE (2D), TRANS-THORACIC Routine 11/19/2023 12:20 PM EDT documented in this encounter Results * ECHO, COMPLETE (2D), TRANS-THORACIC (11/19/2023 12:20 PM EDT) LEFT VENTRICULAR EJECTION FRACTION 40 % [facility] 11/19/2023 12:2 0 PM EDT Hector Hewitt MD ECHOCARDIOLOGY [facility] documented in this encounter Care Teams Compensation Administrator Relationship Specialty Start Date End Date Hector Hewitt MD [facility] [place] [address] PCP - General Family Medicine 12/30/22 documented as of this encounter
--- OUTSIDE RECORDS SUMMARY | 2023-12-03 06:12 | External Medical Summary | Continuity of Care Document ---
Author Name Unknown Organization [id number] Address [address] [place] [id number] Care Team Providers Care Tab Builder Name Role Phone Hector Hewitt Primary Care Physician [phone] [id number] Date(s): 11/10/23 - 11/10/[address] [facility] [address] [id number] [facility] [address] [place] [address] Encounter Diagnosis Right knee pain(Discharge Diagnosis) - 11/10/23 Pre-op exam(Discharge Diagnosis) - 11/10/23 Discharge Disposition: Home or Self Care Attending Physician: MD Rafael, Babar Drummond Allergies, Adverse Reactions, Alerts Substance Criticality Severity Reaction Reaction Severity Status amoxicillin-clavulanate severe diarrhea Active Bee stings Active Medications aspirin 81 mg oral delayed release tablet Start: 11/06/20 9:25:00 AM EDT, 1 tab, PO, Daily Start Date: 11/06/20 Status: Ordered clindamycin 300 mg oral capsule Start: 02/09/18 7:58:00 AM EST, See Instructions, Disp# 6 cap, Refills: 1, 2 capsules 1 hour beforedental cleaning, Pharmacy: [facility] - Start Date: 02/09/18 Status: Ordered Gelsyn-3 16.8 mg/2 mL intra-articular solution Start: 08/22/23 3:43:00 PM EDT, 16.8 mg =, intra-articular, q7days, Disp# 6 mL, Refills: 0, R KNEE DJD M17.11, Note to Pharmacy: 3 syrines for R knee. Please ship to physician's office: [address] [facility] [address], Pharmacy: [facility] Start Date: 08/22/23 Stop Date: 09/12/23 Status: Ordered hydroCHLOROthiazide-triamterene 25 mg-37.5 mg oral tablet Start: 06/02/17 8:46:00 AM EDT, 1 tab, PO, Daily Start Date: 06/02/17 Status: Ordered lisinopril Start: 06/02/17 8:45:00 AM EDT, 2.5 mg =, PO, Daily Start Date: 06/02/17 Status: Ordered metoprolol succinate (ER) Start: 06/02/17 8:45:00 AM EDT, 50 mg =, PO, Daily Start Date: 06/02/17 Status: Ordered rosuvastatin Start: 06/02/17 8:47:00 AM EDT, 20 mg =, PO, Daily Start Date: 06/02/17 Status: Ordered sildenafil Start: 12/05/17 8:46:00 AM EDT, 80 mg =, PO, as needed Start Date: 12/05/17 Status: Ordered Tadalafil (Eqv-Cialis) 20 mg oral tablet TAKE 1 TABLET BY MOUTH ONCE DAILY NEEDED FOR ERECTILE DYSFUNCTION Start Date: 11/10/23 Status: Ordered Tylenol Start: 01/09/18 10:22:00 AM EDT, 1,000 mg =, PO, every six hours Start Date: 01/09/18 Status: Ordered Mental Status 11/10/23 Barriers to Learning one year None evide nt Mandatory Health Literacy Documentation Yes Health Literacy Communication Barriers N ever Primary Language Hungarian Problem List Condition Confirmation Course Effective Dates Status Health Status Informant S/P total knee arthroplasty Confirmed Active HTN (hypertension) Confirmed Active Hypercholesterolemia Confirmed Active Knee 1 Confirmed Active Knee pain, left Confirmed Active Osteoarthritis Confirmed Active Knee osteoarthritis Confirmed Active Osteoarthritis of right knee Confirmed Active Right knee pain Confirmed Active 1B/L knee DJD Diagnosis Diagnosis Type Effective Dates Health Status Cl inical Service Informant Right knee pain Discharge Diagnosis 11/10/23 Pre-op exam Discharge Diagnosis 11/10/23 Procedures Procedure Date Related Diagnosis Body Site Status Varicella 1966 Completed Cardiac pacemaker 1 Compl eted Stent 2 Completed placement [id number] Vital Signs Most recent to oldest [Reference Range]: 1 Height 170 cm (11/10/23 1:38 PM) Patient Weight 89.6 kg (11/10/23 1:38 PM) Body Mass Index 31 kg/m2 (11/10/23 1:38 PM) Temperature [36.5-37.9 DegC] 36.2 DegC *LOW* (11/10/23 1:38 PM) Heart Rate 80 bpm (11/10/23 1:38 PM) Blood Pressure 132/80mmHg (11/10/23 1:38 PM) Social History Social History Type Response 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 Sex Male Sex Representation Male (finding) Implantable Device List Procedure Provider Procedure Date Device Type Site Unknown Unknown 02/20/21 Unknown Unknown Device Identifier Serial Number Lot or Batch Number Manufacturing Date Expiration Date Distinct Identification Code MRI Safety Implantable Status Assigning Authority Unknown Unknown Unknown Unknown Unknown Unknown Unknown Active Unk nown Pre-OP H & P * NERI Aguilar, Zeeshan: PERFORM Event Display: Pre-OP H & P Authored Date: PRE-OPERATIVE HISTORY AND PHYSICAL Name: CRISTINE GALVIN Patient Number: [id number] : 1945 Date of Service: 11/10/2023 PRE-OP Diagnosis: Right knee osteoarthritis Planned Procedure: Right total knee arthroplasty Chief Complaint: Right knee pain History of Present Illness (including history relevant to procedure): This 78-year-old male presents to clinic today for his preoperative history and physical. Patient has a longstanding history of persistent right knee pain that is affecting his ability to ambulate in a normal fashion. Patient states that the he has tried corticosteroid injections, viscosupplementation and activity modification but is still having discomfort in the medial aspect of his knee. He states that he has obvious malalignment and is unable to fully straighten his leg. Patient states that he previously had his left knee replaced and is doing very well and would like to proceed with right total knee arthroplasty. Review Of Systems: A 12 point review of systems is performed and is unremarkable except for those things stated in the HPI and past medical history. Past Medical History: Problems: Right knee pain Osteoarthritis of right knee S/P total knee arthroplasty Knee osteoarthritis Knee pain, left HTN (hypertension) Osteoarthritis Knee Hypercholesterolemia Procedure History Procedure Procedure Date Comments Stent - 2018 Cardiac pacemaker - 02/20/21 placement Varicella 1967 Allergies and Sensitivities: amoxicillin-clavulanate(severe diarrhea) Bee stings Current Home Meds: (Last Updated 11/09 13:38) acetaminophen (Tylenol) 1,000 mg PO every six hours aspirin (aspirin 81 mg oral delayed release tablet) 81 mg PO Daily clindamycin (clindamycin 300 mg oral capsule) 2 capsules 1 hour before dental cleaning hydroCHLOROthiazide-triamterene (hydroCHLOROthiazide-triamterene 25 mg-37.5 mg oral tablet) 1 tab PO Daily lisinopril 2.5 mg PO Daily metoprolol (metoprolol succinate (ER)) 50 mg PO Daily rosuvastatin 20 mg PO Daily sildenafil 80 mg PO as needed sodium hyaluronate (Gelsyn-3 16.8 mg/2 mL intra-articular solution) 16.8 mg intra-articular q7days R KNEE DJD M17.11 tadalafil (Tadalafil (Eqv-Cialis) 20 mg oral tablet) TAKE 1 TABLET BY MOUTH ONCE DAILY NEEDED FOR ERECTILE DYSFUNCTION Vitals: Last Updated 11/10/23 13:38 Weights: Last Updated 11/10/23 13:38 Date Temp Pulse BP RR SpO2 FIO2 Date Wt(kg) Wt(lb) 11/09 13:38 36.2 80 132/80 96 11/09 13:38 89.6 197 11/09 13:38 89.6 197 24 Hr Tmax: No Data Available Initial Wt: 11/09 89.6 kg 197 lb Physical Exam: (relevant to the procedure, including heart and lung evaluation) General: Alert and oriented x 3 with proper grooming and hygiene Eyes: Pupils are equal reactive to light with accommodation. Extraocular movements are intact Throat: Posterior oropharynx is clear with absence of edema, erythema or exudate. Dentition is appropriate Cardiac: Regular rate and rhythm with a grade 3/6 holosystolic murmur noted in the left upper and lower sternal border. No gallops appreciated Lungs: Clear to auscultation throughout with no wheezing, rales or rhonchi Abdomen: Mildly obese, nondistended, nontender with NABS Extremities: Right knee; range of motion is from 8 degrees of extension to 102 degrees of flexion. He has visible varus malalignment. There is audible crepitation with passive range of motion. His patella is not mobile due to arthritic change within the patellofemoral joint. There is no laxity withvarus or valgus stressing. AP drawer sign and Shayne test are negative. Patient is neurovascularlyintact in right lower extremity. Neuro: Cranial nerves II through XII are intact no motor or sensory deficit Skin: Normal in appearance with no open skin areas or discharge Studies (relevant to the procedure): x-rays shows advanced osteoarthritis of the right knee and a well-fixed, well-aligned knee replacement on the left. Plan: Patient is scheduled to undergo this procedure at the [facility] with Dr. Hall on December 03, 2023. Risks and complications of the procedure such as: Infection, bleeding, pain, scarring, nerve blood vessel damage, weakness, wound problems, stiffness, incomplete rel ief of symptoms, hardware failure, hardware loosening, wear, fracture, tendon or ligament injury, blood clots, embolism, cardiac, stroke and were explained to the patient at his visit today andinformed consent for the procedure was obtained. 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 Patient is scheduled to meet with anesthesia at the hospital later today. While there he will obtain a CBC with differential, complete metabolic panel, PT/INR, PTT, blood type and screen, urinalysis, urine culture and sensitivity, EKG a nasal culture for MRSA and a chest x-ray. During today's visit we reviewed the total knee packet. I provided the patient with paperwork to obtain obtaining a handicap placard for his vehicle. I provided him with information about lectures offered by [facility] in regards to joint replacement surgery. Patient has a walker at home that he will bring with him on the day of surgery. Patient also states that he has a shower chair and raised toilet seat from his previous total knee ar throplasty. We discussed discharge planning from the hospital. Patient states he will most likely do in-home physical therapy for the first 2 weeks before transitioning to outpatient physical therapynear his home. I advised the patient that he will be provided with a prescription for narcotic painmedication for postoperative pain control. We will have him on Eliquis twice daily for the first 30days postoperatively for blood clot prevention. Patient is scheduled for his 2-week postoperative follow-up visit with Rocky Velasco on December 17. This chart was completed utilizing [employer] voice recognition software. Grammatical errors,random word insertions, pronoun errors, and in complete sentences are an occasional consequence of the system. Any questions or concerns about the content, text, or information contained within the body of this dictation should be addressed directly to the physician for clarification. Electronic Signature on File Electronically Reviewed/Signed by: Zeeshan Aguilar PA-C Author Signature Dt/Tm:11/12/2023 10:22 AM Division of Sports Medicine Electronically Reviewed/Signed by: Babar Hall MD Cosigner Signature Dt/Tm: 11/12/2023 11:16 AM Shroudman for Clinical Affairs, [facility] Professor in Orthopaedics Conduit Bender, [facility] Ortho Outpt Note * Nani Doran: PERFORM, MODIFY Event Display: Ortho Outpt Note Authored Date: [id number] Name:CRISTINE GALVIN Patient Number:[id number] :1945 Date of Service:11/10/2023 CHIEF COMPLAINT: 1) Right knee pain 2) Left TKA; DOS: 12/2017 HPI: Amanda Hunt presents today for follow- up of his left TKA and surgical consent for right TKA. He is currently scheduled for surgery on 12/03/2023. He most recently had a Durolane injection in his right knee on 09/05/2023. PHYSICAL EXAM: Focus onbilateral lower extremities: Femoral and sciatic nerve function intact. Left ROM: 0 - 115 Right ROM: -2 to 100 Gait pattern reveals varus thrust on the right Right knee medial and lateral joint line tenderness Mild right knee effusion Left knee incision well-healed Skin healthy DIAGNOSTIC REVIEW: Review of x-rays shows advanced osteoarthritis of the right knee and a well- fixed, well-aligned knee replacement on the left. IMPRESSION: 1) Severe right knee OA 2) 6 years s/p left TKA PLAN: Risks, benefits, procedure, and rehabilitation were reviewed. Surgical consent obtained for right total knee arthroplasty. Follow-up asscheduled for surgery andfor post-operative appointments ATTESTATION: Nani Garcia, scribing for and in the presence of, Babar Hall, on this date,11/10/2023 13:48:37. Electronic Signature on File Electronically Reviewed/Signed by: Nani Doran Author Signature Dt/Tm:11/10/2023 02:58 PM Electronically Reviewed/Signed by: MD Nabil Pederson Signature Dt/Tm: 11/10/2023 02:59 PM Shroudman for Clinical Affairs, [facility] Professor in Orthopaedics Conduit Bender, [facility] Medicine Patient Care team information Care Team Personnel Name: MD Marcelina, Hector Galeas Position: Referring Member Role: Primary Care Provider Address: [address] [place] [address] Drive [address] [place] [address] [place] Care Team Related Persons Name: TREY GALVIN
--- OUTSIDE RECORDS SUMMARY | 2023-12-03 06:12 | External Medical Summary | Summary of Care ---
Author Name Unknown Organization [facility] Address [address] [facility] [place] [address] Care Team Providers Care Hospital Administrator Name Role Phone Hector Hewitt MD Primary Care Provider [phone] Reason for Visit * Reason Comments Preop Pt Assessment Encounter Details Date Type Department Care Team (Late st Contact Info) Description 11/17/2023 11:00 AM EDT [facility] [address] [place] [address] [place] [phone] Lora Muñoz, [address] [place] [address] Preoperative clearance*; Osteoarthritis of right knee, unspecified osteoarthritis type; Systolic CHF, chronic (HCC); S/P coronary artery stent placement; S/P ICD (internal cardiac defibrillator) procedure; Gastroesophageal reflux disease without esophagitis; Mixed hyperlipidemia Allergies Active Allergy Reactions Criticality Noted Date Comments Amoxicillin Diarrhea 08/30/2016 Amoxicillin-Pot Clavulanate 08/29/19 23 Bee Venom Edema airway High 11/01/2016 documented as of this encounter (statuses as of 11/17/2023) Medications Medication Sig Dispensed Refills Start Date [...] Capsule by mouth in the morning. Active [employer] Gummy 50-45-3.8 MG Oral Tablet Chewable (Elderberry-Vitamin C-Zinc) Take 1 Each by mouth daily. Active documented as of this encounter (statuses as of 11/17/2023) Active Problems Problem Noted Date Diagnosed Date CAD in makah artery 08/31/2022 Gastroesophageal reflux disease 08/31/2022 Hyperlipidemia 08/31/2022 Hypertension 08/31/2022 S/P coronary artery stent placement 08/31/2022 S/P ICD (internal cardiac defibrillator) procedu re 08/31/2022 Screening PSA (prostate specific antigen) 2022 Systolic CHF, chronic 02/09/2021 Overview: Added automatically from request for surgery [id number] documented as of this encounter (statuses as of 11/17/2023) Immunizations Name Administration Dates Next Due COVID-19 mRNA, LNP-s, No Pre serve, 2-Dose Series (Pfizer) 06/02/2020,05/12/2020 DTaP Dipth/Tet/Acell Pertussis (Infanrix), Peds 07/12/2018 Pneumococcal Conjugate Vacc, 13 Valent (Prevnar) 03/01/2016,03/01/2016 Pneumococcal Polysaccharide PPV23 (Pneumovax) 12/11/2016 Season Influenza, Quad, PF, Adjuvanted, 65+ Yrs, IM (FLUAD) 12/17/2019 Seasonal Influenza, PF, 6 M & above, IM , (FluLaval or Fluzone) 01/01/2016,01/24/2014,12/22/2012,12/03,01/21/2011 Seasonal Influenza, Quadriva lent Hd (Fluzone Hd) 03/03/2023 Seasonal Influenza, Quadriva lent Hd, 65+ Yrs 01/10/2022,12/25/2020 Seasonal Influenza, Quadriva lent, No Preserve, IM 01/24/2014 Seasonal Influenza, Split, I IV3, With Preserve, Inj 12/22/2012,12/04/2011,01/21/2011 Seasonal Influenza, Trivalen t, High Dose, No Preserve, IM 01/27/2018,12/11/2016,01/01/2016 Zoster Vaccine Recombinant (Shingrix) 11/22/2018 ,10/22/2018 documented [...] the money to buy more. Never true 08/08/20 24 Within the past 12 months, t [...] Sign Reading Time Taken Comments Blood Pressure 102/64 11/17/2023 10:51 AM EDT Pulse 81 11/17/2023 10:51 AM EDT Temperature - - Respiratory Rate - - Oxygen Saturation 98% 11/17/2023 10:51 AM EDT Inhaled Oxygen Concentration - - Weight 90.4 kg (199 lb 6.4 oz) 11/17/2023 10:51 AM EDT Height - - Body Mass Index 27.81 08/31/2023 2:40 AM EDT documented in this encounter Progress Notes * Lora Muñoz, HELGA - 11/17/2023 11:26 AM EDT Images from the original note were not included. Pre-Operative Medical Evaluation Nursing Notes: Merary Gaston, MED ASSIST 11/17/23 1055 Addendum Pt presents for preop clearance. He is scheduled in [facility] with Dr. Hollis on 12/03/23 for a right total knee replacement. He is scheduled for a preop echocardiogram "hopefully today at [facility]" today. Procedure Information Type of Surgery: R TKR Referring Physician / Surgeon: Dr. Hollis Date of procedure: 12/03/2023 Brief History of Present Illness: Today he may go get an ECHO of heart before surgery. 2020 was the last ECHO. He follows with Cardiology Dept at [place]. He has systolic CHF s/p ICD and stent placement and remains on lisinopril 10 mg,triamterene-HCTZ 37.5-25 mg and metoprolol 100 mg daily. His GERD is stable on protonix 40 mg everyother day. His HLD is stable on crestor 40 mg daily. Review of Systems Constitutional: Negative for fatigue and fever. Respiratory: Negative for shortness of breath. Cardiovascular: Negative for chest pain and palpitations. Gastrointestinal: Negative for constipation and diarrhea. Neurological: Negative for dizziness and headaches. Medical History Problem List: CAD in makah artery (08/31/2022) Gastroesophageal reflux disease (08/31/2022) Hyperlipidemia (08/31/2022) Hypertension (08/31/2022) S/P coronary artery stent placement (08/31/2022) S/P ICD (internal cardiac defibrillator) procedure (08/31/2022) Screening PSA (prostate specific antigen) (08/29/2022) Systolic CHF, chronic (HCC) (02/09/2021) Current Medications Acetaminophen 500 MG Oral Tablet (Tylenol Extra Strength), 1,000 mg, Oral, Q6H PRN Centrum Silver 50+Men Oral Tablet, 1 Tablet, Oral, Daily(Non-Specified) Culturelle Digestive Daily Oral Capsule, 1 Capsule, Oral, Daily(AM) [employer] Gummy 50-45-3.8 MG Oral Tablet Chewable (Elderberry- Vitamin C-Zinc), 1 Each, Oral, Daily(Non-Specified) Pantoprazole Sodium 40 MG Oral Tablet Delayed Release (Protonix), TAKE 1 TABLET BY MOUTH EVERY OTHER DAY Tadalafil 20 MG Oral Tablet (Cialis), 20 mg, Oral, Daily PRN (Patient taking differently: 20 mg, Oral, Daily(AM)) Fluticasone Propionate 50 MCG/ACT Nasal Suspension (Flonase), USE 2 SPRAYS IN BOTH NOSTRILS ONCE DAILY Lisinopril 10 MG Oral Tablet (Prinivil), 10 mg, Oral, Daily(AM) Metoprolol Succinate ER 100 MG Oral Tablet Extended Release 24 Hour (toPROL XL), 100 mg, Oral, Daily(AM) Triamterene-HCTZ 37.5-25 MG Oral Tablet ((Maxzide-25)), 1 Tablet, Oral, Daily(Non-Specified) Rosuvastatin Calcium 40 MG Oral Tablet (Crestor), 40 mg, Oral, Daily(AM) (Patient taking differently: 40 mg, Oral, QPM-1999) Aspirin 81 MG Oral Tablet Delayed Release, 81 mg, Oral, Daily(AM) Allergies: Bee venom, Amoxicillin, and Augmentin [amoxicillin-pot clavulanate] Past Medical History: has a past medical history of Arthritis, Family history of colon cancer, H/O varicose veins, HLD (hyperlipidemia), HTN (hypertension), Lyme arthritis (HCC), Measles, and Mumps. Past Surgical History: has a past surgical history that includes colonoscopy (08/01/2006); removal of tonsils, under age 13; Insert/Replace Defibrillator w/Transverse Lead(s) (Left, 02/20/2021); Colonoscopy, Diagnostic (Rectum) (N/A, 05/10/2022); and Arthroplasty Knee Total. Social History: reports that he has quit smoking. His smoking use included cigarettes. He has never used smokeless tobacco. He reports current alcohol use. He reports that he does not use drugs. Family History: family history includes Cancer in his father; Colon cancer in his sister; Diabetes in his mother; Thyroid disease in his mother; Ulcerative colitis in his sister. Anesthesia History Type of Anesthesia: General Endotracheal and Caudal block Anesthesia reaction: No History of surgical complications: none Personal history of venous thromboembolic disease: none Physical Exam Vitals: 11/17/23 1051 Pulse: 81 SpO2: 98% BP: 102/64 Labs reviewed and are significant for: stable EKG by my review is significant for: stable with sinus bradycardia; has upcoming appt with cardiology. Chest X-ray: No active disease in the chest noted Surgical Risk Scoring Revised Cardiac Risk Index (RCRI) High-risk type of surgery (examples include vascular and any open intraperitoneal or intrathoracic procedures): 0=No History of ischemic heart disease (history of myocardial infarction or positive exercise test, current compliant of chest pain considered to be secondary to myocardia ischemia, use of nitrate therapy, or ECG with pathological Q waves; do not count prior coronary revascularization procedure unless one of the other criteria for ischemic heart disease is present): 1=Yes History of heart failure: 1=Yes History of cerebrovascular disease: 0=No Diabetes mellitus requiring treatment with insulin: 0=No Preoperative serum creatinine >2.0 mg/dL (177 micromol/L): 0=No Pt has revised cardiac index score of: Two Risk Factors- 2.4% (95% CI: 1.3-3.5) Assessment and Plan Preoperative clearance Osteoarthritis of right knee, unspecified osteoarthritis type Functional Assessment They are able to walk up a flight of stairs. The patient's functional status is adequate (equal to 4 METS). 1 MET: 4 METs: 4-10 METs: Can take care of self, such as eat, dress or use the toilet. Can walk to block or go up a flight of steps. Can do heavy house work. Surgical Risk Assessment Patient is low medical risk for the listed procedure. Medication adjustments: - as per pre-op Additional consults or testing: - has appt with cardiology today Systolic CHF, chronic (HCC) S/P coronary artery stent placement S/P ICD (internal cardiac defibrillator) procedure - chronic stable on current regimen, follows with cardiology - defib was tested once a year Gastroesophageal reflux disease without esophagitis - chronic, stable on protonix Mixed hyperlipidemia - chronic, stable on crestor I spent a total of 30-39 minutes (exact time 34 mins) on the date of service in preparation, delivery, and documentation of the care provided to Yonatan [place] excluding any time spent in the performance of separately billed services. Lora Muñoz DNP, STEVEN documented in this encounter Nursing Notes * Merary Gaston, MED ASSIST - 11/17/2023 10:52 AM EDT Pt presents for preop clearance. He is scheduled in [facility] with Dr. Hollis on 12/03/23 for a right total knee replacement. He is scheduled for a preop echocardiogram "hopefully today at [facility]" today. documented in this encounter Plan of Treatment Upcoming Encounters Date Type Department Care Team (Late st Contact Info) Description 11/17/2023 3:15 PM EDT Office Visit Cardiology, [facility] [address] [place] [address] Nancy Hernandez CRNP [address] [place] [address] 04/02/2024 10:15 AM EST Office Visit Eduardo Varela [address] [place] [phone] Hector Hewitt MD [facility] [place] [address] 08/12/2024 3:00 PM EDT Cardiac Studies Cardiology [facility] [place] [address] [facility] [address] [facility], [facility] Rhythm [facility] [address] [facility] [address] 11/02/2024 11:00 AM EDT Nurse Only Family [place] [address] [place] [phone] [employer] Fme Pob [...] 05/10/2022, 04/24, 11/01/2016 Albumin/Creatinine Ratio 10/29/2026 10/30/2023 DTaP,Tdap,and Td Vaccines (2 - Tdap) 07/12/2028 07/12/2018 Pneumococcal [...] this encounter Medical Devices Implanted Type Area Aeronautical Test Engineer Device Identifier Shelf Expiration Date Model / Serial / Lot Lead Novus Bipolar 52cm - [id number] Implanted:Qty: 1 on 02/20/2021 by Ginger Christensen MD at [facility] [employer] : CRM [id number] 11/09/2022 5076- 52 / [id number] / [id number] Lead Sprint Quattro Secure - [id number] Implanted:Qty: 1 on 02/20/2021 by Ginger Christensen MD at [facility] [employer] : CRM [id number] 11/07/2022 60735 5 / [id number] / [id number] documented as of this encounter Visit Diagnoses Diagnosis Preoperative clearance- Primary Preoperative examination, unspecified Osteoarthritis of right knee, unspecified osteoarthritis type Systolic CHF, chronic (HCC) Chronic systolic heart failure S/P coronary artery stent placement Postsurgical percutaneous transluminal coronary angioplasty status S/P ICD (internal cardiac defibrillator) procedure Automatic implantable cardiac defibrillator in situ Gastroesophageal reflux disease without esophagitis Esophageal reflux Mixed hyperlipidemia documented in this encounter Care Teams Hospital Administrator Relationship Specialty Start Date End Date Hector Hewitt MD [facility] [place] [address] PCP - General Family Medicine 12/30/22 documented as of this encounter
--- OUTSIDE RECORDS SUMMARY | 2023-12-03 06:12 | External Medical Summary | Summary of Care ---
Author Name Unknown Organization [facility] Address [address] [facility] [address] Phone [phone] Care Team Providers Care Ios Programmer Name Role Phone Hector Hewitt MD Primary Care Provider [phone] Reason for Visit * Reason Onset Date Comments Medical Records Request 11/17/2023 Encounter Details Date Type Department Care Team (Late st Contact Info) Description 11/17/2023 Telephone Cardiology, [facility] [address] [place] [address] Nancy Hernandez CRNP [address] [place] [address] Medical Records Request Allergies Active Allergy Reactions Criticality Noted Date [...] Active Additional Information Patient taking differently:40 mg OralQ-1999, Reported on 06/10/2023 Metoprolol Succinate ER 100 [...] Capsule by mouth in the morning. Active [employer] [facility] Gummy 50-45-3.8 MG Oral Tablet Chewable (Elderberry-Vitamin C-Zinc) Take 1 Each by mouth daily. Active documented as of this encounter (statuses as of 11/17/2023) Active Problems Problem Noted Date Diagnosed Date CAD in lytton artery 08/31/2022 Gastroesophageal reflux disease 08/31/2022 Hyperlipidemia 08/31/2022 Hypertension 08/31/2022 S/P coronary artery stent placement 08/31/2022 S/P ICD (internal cardiac defibrillator) procedu re 08/31/2022 Screening PSA (prostate specific antigen) 2022 Systolic CHF, chronic 02/09/2021 Overview: Added automatically from request for surgery [id number] documented as of this encounter (statuses as [...] 10/30/2023 Does the household have a re lar source of income? (Household - for ages [...] Telephone Encounter - Nancy Hernandez CRNP - 11/17/2023 7:27 PM EDT Please obtain [facility] reports from [facility] completed in 2018 and from [facility] in 2018 also. Thanks. documented in this encounter Plan of Treatment Upcoming Encounters Date Type Department Care Team (Late st Contact Info) Description 11/19/2023 12:15 PM EDT Cardiac Studies Cardiac Studies [address] [place] [address] 04/02/2024 10:15 AM EST Office Visit Eduardo Varela [address] [place] [phone] Hector Hewitt MD [facility] [place] [address] 08/12/2024 3:00 PM EDT Cardiac Studies Cardiology [facility] [place] [address] [place] [address] Clinic, Heart Rhythm Device [address] [place] [address] 11/02/2024 11:00 AM EDT Nurse Only Family [address] [place] [phone] [employer], [employer] Fme [...] this encounter Medical Devices Implanted Type Area Family Advocate Device Identifier Shelf Expiration Date Model / Serial / Lot Lead Novus Bipolar 52cm - [id number] Implanted:Qty: 1 on 02/20/2021 by Ginger Christensen MD at [facility] [employer] : CRM [id number] 11/09/2022 5076- 52 / [id number] / [id number] Lead Sprint Quattro Secure - [id number] Implanted:Qty: 1 on 02/20/2021 by Ginger Christensen MD at [facility] [employer] : CRM [id number] 11/07/2022 [id number] 5 / [id number] / [id number] documented as of this encounter Care Teams Ios Programmer Relationship Specialty Start Date End Date Hector Hewitt MD [facility] [place] [address] PCP - General Family Medicine 12/30/22 documented as of this encounter
--- OUTSIDE RECORDS SUMMARY | 2023-12-03 06:12 | External Medical Summary | Summary of Care ---
Author Name Unknown Organization [facility] Address [address] [facility] [address] Phone [phone] Care Team Providers Care Registered Nurse Hh Case Manager Name Role Phone Hector Hewitt MD Primary Care Provider Reason for Visit * Reason Onset Date Comments Appointment 11/12/2023 Encounter Details Date Type Department Care Team (Late st Contact Info) Description 11/12/2023 Telephone Cardiology, [facility] [address] [place] [address] Nancy Hernandez CRNP [address] [place] [address] Appointment Allergies Active Allergy Reactions Criticality Noted Date Comments Amoxicillin Diarrhea 08/30/2016 Amoxicillin-Pot Clavulanate 08/29/19 23 Bee Venom Edema airway High 11/01/2016 documented as of this encounter (statuses as of 11/12/2023) Medications Medication Sig Dispensed Refills Start Date [...] Erectile Dysfunction. 30 Tablet 5 07/21/2023 Active Pantoprazole Sodium 40 MG Oral Tablet Delayed [...] Oral Capsule Take 1 Capsule by mouth every evening. Active [employer] Gummy 50-45-3.8 MG Oral Tablet Chewable (Elderberry-Vitamin C-Zinc) Take 1 Each by mouth daily. Active documented as of this encounter (statuses as of 11/12/2023) Active Problems Problem Noted Date Diagnosed Date CAD in ho-chunk artery 08/31/2022 Gastroesophageal reflux disease 08/31/2022 Hyperlipidemia 08/31/2022 Hypertension 08/31/2022 S/P coronary artery stent placement 08/31/2022 S/P ICD (internal cardiac defibrillator) procedu re 08/31/2022 Screening PSA (prostate specific antigen) 2022 Systolic CHF, chronic 02/09/2021 Overview: Added automatically from request for surgery [id number] documented as of this encounter (statuses as of 11/12/2023) Immunizations Name Administration Dates Next Due COVID-19 [...] No 10/30/2023 Does the household have a [facility] source of income? (Household - for ages [...] encounter Miscellaneous Notes * Telephone Encounter - Tennille Li OSA - 11/12/2023 2:16 PM EDT Patient has been scheduled. * Telephone Encounter - Rose Ellis MED ASSIST - 11/12/2023 1:49 PM EDT Received request from [facility] pre-admission testing requesting Pre-Op clearance for patient. for patient to call back. If he calls back please schedule in [place] for a pre-op clearance, Nancy Hernandez has openings on 11/17/23 and Binta Cayden has openings on 11/21/23. Rose Ellis NRCMA documented in this encounter Plan of Treatment Upcoming Encounters Date Type Department Care Team (Late st Contact Info) Description 11/17/2023 11:00 AM EDT Office Visit Gerber Varela[address] [place] [phone] Lora Muñoz, HELGA [address] [place] [address] 11/17/2023 3:15 PM EDT Office Visit Cardiology, [facility] [address] [place] [address] Nancy Hernandez CRNP [address] [place] [address] 04/02/2024 10:15 AM EST Office Visit Gerber Varela[address] [place] [phone] Hector Hewitt MD [facility] [place] [address] 08/12/2024 3:00 PM EDT Cardiac Studies [facility]iology [facility] [address] [facility] [address] Clinic, Heart Rhythm Device [address] [place] [address] 11/02/2024 11:00 AM EDT Nurse Only Family [place] [address] [place] [phone] [employer], Pc[employer] e Po Scheduled Procedures Name Priority Associated Diagnoses Date/Ti me COLONOSCOPY FLEXIBLE PROXIMA L DIAGNOSTIC Recall Family history of colon cancer Health Maintenance Due Date Last Done Comments Influenza Vaccine (FLU shot) (#1) 2023 03/03/2023, 01/10/2022, 12/25/2020, Additional history exists GFR 09/02/2024 09/03/2023, 06/11/2023, 02/25/2023, Additional history exists Depression Screening 10/29/2024 [...] this encounter Medical Devices Implanted Type Area Aurist Device Identifier Shelf Expiration Date Model / Serial / Lot Lead Novus Bipolar 52cm - [id number] Implanted:Qty: 1 on 02/20/2021 by Ginger Christensen MD at [facility] [place] [employer] : CRM [id number] 11/09/2022 5076- 52 / [id number] / [id number] Lead Sprint Quattro Secure - [id number] Implanted:Qty: 1 on 02/20/2021 by Ginger Christensen MD at [facility] [place] [employer] : CRM [id number] 11/07/2022 [id number] 5 / [id number] / [id number] documented as of this encounter Care Teams Registered Nurse Hh Case Manager Relationship Specialty Start Date End Date Hector Hewitt MD [facility] [place] [address] PCP - General Family Medicine 12/30/22 documented as of this encounter
--- OUTSIDE RECORDS SUMMARY | 2023-12-03 06:12 | External Medical Summary | Summary of Care ---
Author Name Unknown Organization [facility] Address [address] [place] [address] Phone [phone] Care Team Providers Care Medical Editor Name Role Phone Hector Hewitt MD Primary Care Provider [phone] Reason for Referral * Precert (Diagnostic Medical) (Within 10 days (routine)) - Pending Review Specialty Diagnoses / Procedures Referred By Contac t Referred To Contact Cardiac Studies Diagnoses Pre-operative cardiovascular examination Heart failure, systolic, due to CAD (HCC) HTN, goal below 130/80 ICD (implantable cardioverter-defibrillator), dual, in situ Ischemic cardiomyopathy Dyslipidemia, goal LDL below 70 Procedures ECHO, COMPLETE (2D), TRANS-THORACIC Nancy Hernandez CRNP [address] [place] [address] Referral ID Status Reason Start Date Expiration Date Visits Requested Visits Authorized [id number] Pending Review Precert 11/17/2023 999 999 Reason for Visit * Reason Comments Follow Up Pre-op Clearance Encounter Details Date Type Department Care Team (Late st Contact Info) Description 11/17/2023 3:15 PM EDT Office Visit Cardiology, [facility] [address] [place] [address] Nancy Hernandez CRNP [address] [place] [address] Pre-operative cardiovascular examination*; Heart failure, systolic, due [...] Capsule by mouth in the morning. Active Profitably Gummy 50-45-3.8 MG Oral Tablet Chewable (Elderberry-Vitamin C-Zinc) Take 1 Each by mouth daily. Active documented as of this encounter (statuses as of 11/17/2023) Active Problems Problem Noted Date Diagnosed Date CAD in sioux artery 08/31/2022 Gastroesophageal reflux disease 08/31/2022 Hyperlipidemia 08/31/2022 Hypertension 08/31/2022 S/P coronary artery stent placement 08/31/2022 S/P ICD (internal cardiac defibrillator) procedu re 08/31/2022 Screening PSA (prostate specific antigen) 2022 Systolic CHF, chronic 02/09/2021 Overview: Added automatically from request for surgery [id number] documented as of this encounter (statuses as of 11/17/2023) Immunizations Name Administration Dates Next Due COVID-19 mRNA, LNP-s, No Pre serve, 2-Dose Series (VersionOne) 06/02/2020,05/12/2020 DTaP Dipth/Tet/Acell Pertussis (Infanrix), Peds 07/12/2018 [...] from the original note were not included. Cardiology Outpatient Clinic Note 11/17/2023 CC: Pre [...] today's office visit. He was evaluated in [facility] 08/31/23 with dizziness, nausea and vomiting and diarrhea. Provided with 500 mL normal saline bolus and meclizine with improvement in symptoms. Hypokalemia repleted orally. Trop negative. 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 CARDIAC HISTORY: CAD: He remains very active despite OR dating back probably to 2016. 2018 PCI/Stent [facility] at [facility]; Last [facility] repeated in 2018. He had a cardiac work up in 2018 consisting of cardiac MRI which showed extensive LAD scar. His ejection fraction has been in the 30-35% range with last echo 01/01/2021 (no updated TTE). [employer] images were reviewed from 2018. 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 Yonatan Washington exercise tolerance seems good. Effort tolerance: Able to climb 1 flight of stairs without shortness of breath or chest pain. Walksoutside and swims daily without symptoms. His cardiac history/risk factors is significant for: (+) Previous OR (+) Previous CABG/PCI/Stents (+) ICD (no) Diabetes [...] 1 Capsule by mouth in the morning. Profitably Gummy 50-45-3.8 MG Oral Tablet Chewable (Elderberry- [...] performed by Thomas Kilgore DO at ENDOSCOPY [facility] INSERT/REPLACE DEFIBRILLATOR W/TRANSVERSE LEAD(S) Left 02/20/2021 DUAL CHAMBER DEFIBRILLATOR performed by Ginger Christensen MD at CARDIAC LABS [facility] REMOVAL OF TONSILS, UNDER AGE 13 Family History Problem Relation Name Age of Onset Diabetes Mother Other (Thyroid disease) Mother Cancer Father Colon cancer Sister Ulcerative colitis Sister Coronary Artery disease Uncle (Maternal) OR 50 Social History Tobacco Use Smoking status: [...] is 10.1% 30 day risk of , OR, or cardiac arrest with general anesthesia. If [...] provider/QHP. STEVEN Stokes documented in this encounter Plan of Treatment Upcoming Encounters Date Type Department Care Team (Late st Contact Info) Description 11/19/2023 12:15 PM EDT Cardiac Studies Cardiac Studies [address] [address] 04/02/2024 10:15 AM EST Office Visit Family Eddie [address] [place] [phone] Hector Hewitt MD [facility] [place] [address] 08/12/2024 3:00 PM EDT Cardiac Studies Cardiology [facility] [address] [place] [address] Clinic, Heart Rhythm Device [address] [place] [address] 11/02/2024 11:00 AM EDT Nurse Only [facility] [address] [place] [phone] [employer] [facility] [facility] Scheduled Orders Name Type Priority Associated Diagnoses Orde r Schedule ECHO, COMPLETE (2D), TRANS-THORACIC Echocardiology Routine Pre-operative cardiovascular examination Heart failure, systolic, due to CAD (HCC) HTN, goal below 130/80 ICD (implantable cardioverter-defibrillat or), dual, in situ Ischemic cardiomyopathy Dyslipidemia, goal LDL below 70 Ordered: 11/17/2023 EKG EKG Routine Pre-operative cardiovascular examination Heart failure, systolic, due to CAD (HCC) HTN, goal below 130/80 ICD (implantable cardioverter-defibrillat or), dual, in situ Ischemic cardiomyopathy Dyslipidemia, goal LDL below 70 Ordered: 11/17/2023 Scheduled Procedures Name Priority Associated Diagnoses Date/Ti [...] this encounter Medical Devices Implanted Type Area Parts Expediter Device Identifier Shelf Expiration Date Model / Serial / Lot Lead Novus Bipolar 52cm - [id number] Implanted:Qty: 1 on 02/20/2021 by Ginger Christensen MD at [facility] [employer] : CRM [id number] 11/09/2022 5076- [id number] / [id number] / [id number] Lead Sprint Quattro Secure - [id number] Implanted:Qty: 1 on 02/20/2021 by Ginger Christensen MD at [facility]ARD[facility] [employer] : CRM [id number] 11/07/2022 [id number] / [id number] / [id number] documented as of this encounter Visit Diagnoses Diagnosis Pre-operative cardiovascular examination- Primary Heart failure, systolic, due to CAD (HCC) Unspecified systolic heart failure HTN, goal below 130/80 Unspecified essential hypertension ICD (implantable cardioverter-defibrillator), dual, in situ Ischemic cardiomyopathy Other specified forms of chronic ischemic heart disease Dyslipidemia, goal LDL below 70 Other and unspecified hyperlipidemia documented in this encounter Care Teams Medical Editor Relationship Specialty Start Date End Date Hector Hewitt MD [facility] [place] [id number] PCP - General Family Medicine 12/30/22 documented as of this encounter"
[2023-12-03] MEDS ORDERED: BUPIVACAINE 0.5 % 5 MG/1 ML PF 10ML VIAL ONE (06:16)
[2023-12-03] MEDS ORDERED: ROPIVACAINE 0.5% 5 MG/ML 30 ML VIAL ONE (06:16)
[2023-12-03] MEDS: LACTATED RINGER'S 1,000 ML IV SCH (06:26)
[2023-12-03] MEDS: LR 60ML/HR IV SCH (06:26)
--- NOTE | 2023-12-03 06:29 | History & Physical Bridge Note ---
Date of Service December 03, 2023 History & Physical Bridge Note I have examined the patient, reviewed the History & Physical and in the interval since the performance of the History & Physical I have noted the following changes of clinical significance: consent and site verified/will give TXA topically during surgery .no changes noted
[2023-12-03] MEDS ORDERED: MIDAZOLAM HCL 1 MG/ML 2ML VIAL ONE (06:33)
[2023-12-03] MEDS ORDERED: ONDANSETRON INJ 2 MG/ML 2 ML VIAL IV PRN ×2 (06:35→10:21)
[2023-12-03] MEDS ORDERED: ePHEDrine sulfate 50 MG/ML AMP IV PRN (06:35)
[2023-12-03] MEDS ORDERED: fentaNYL citrate PF 100 MCG/2 ML VIAL IV PRN (06:35)
[2023-12-03] MEDS ORDERED: ATROPINE SULFATE 0.1 MG/ML 10ML SYR IV PRN (06:35)
[2023-12-03] MEDS ORDERED: PROPOFOL IV EMULSION 10 MG/ML 20 ML VIAL IV ONE ×2 (06:42→08:21)
[2023-12-03] MEDS: ceFAZolin 3000MG 3,000 MG/72.5 ML BAG IV SCH (06:54)
[2023-12-03] MEDS ORDERED: GLYCOPYRROLATE 0.2 MG/ML VIAL ONE (07:14)
[2023-12-03] MEDS: ORTHO JOINT ANESTHETIC ONE (07:25)
[2023-12-03] MEDS: TRANEXAMIC ACID 1,000 MG in 0.9 % SODIUM CHLORIDE 100 ML IR SCH (08:06)
[2023-12-03] MEDS: ROPIVACAINE 0.5% HCL/PF 246 MG, Ketorolac (*for OR use only*) 30 MG, EPINEPHrine 30MG/3... INFIL SCH (08:17)
--- NOTE | 2023-12-03 08:45 | Post Operative Brief Note ---
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
--- NOTE | 2023-12-03 08:49 | Operative Report ---
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 I identified the patient and participated in the time-out.: Yes Procedure Operation Date: 12/03/23 07:00 <No data on this case meets the specified criteria> Cemented right total knee replacement Surgeon Babar Hall MD Radar Engineering Teacher Paolo/Krista Estimated Blood Loss 25 Findings Consistent with Post-Op Diagnosis Severe osteoarthritis with flexion varus deformity grade 4 disease medial patellofemoral compartment moderate lateral compartment Fluids 1000 cc Specimens Bone pathology Drains None Complications None Indications Failed conservative management advanced x-ray changes failed conservative management including injections Description of Procedure After the patient was appropriate notified site verified consent verified antibiotics confirmed as being given the right lower extremity was prepped and draped in his routine fashion. Tourniquet was inflated to 275 mmHg after exsanguination limb with a rubber was recommended for total of 69 minutes. Midline exposure was utilized parapatellar throughout any performed. There was extensive osteophytosis about the knee. This required extensive dissection and resection of the osteophytes. The knee had limited flexion went about 100 degrees. The notch was all overgrown with bone this was carved out with an osteotome osteotome was then used to get all the osteophytes along the margin of the femur and the proximal tibia. Distal femur was then entered PCL was then resected tibia can still not be subluxated the distal femur was then cut 12 mm and then the proximal tibial cut was then made at 4 mm then the tibia was able to be subluxated there was marked osteophytes posteriorly these were all resected. Both were sized to a size 6 femur and tibia appropriate cutting block applied to the distal femur anterior posterior, chamfer cuts then made flexion extension gaps were excellent. Box cut was then made and the size 6 required some fiddling on the medial side ultimately was within acceptable position. Tibia was then broached and reamed and a size 6 spacer 5 mm thick was then utilized and it tracked well was stable in full with flexion and full extension the midrange stability was excellent. The the patella was then resected taking about 10 mm. The 4 1 trial was then seated everything tracked well. All trial of months with the removed Ortho mix injected about the knee knee was then soaked in TXA for 3 minutes soaked in Betadine for 2 minutes and then irrigated and the permanent cemented in position tibia femur patella in that order. After 12 minutes the tourniquet was deflated minor bleeding points controlled electrocautery. Knee was then closed at 40 degrees of flexion using #2 Vicryl 2-0 Vicryl and standstill clips appropriate dressing applied the patient transferred recovery in satisfactory understanding tolerated procedure well. Summary of implants GoMiles ATT UNE knee system size 6 femur posterior cruciate substituting size 6 tibia rotating platform size 6 spacer 5 mm thick and patella was 41. 2 bags of Palacos G cement EBL 25 cc or less crystalloid per anesthesia pathology pending on bone DVT prophylaxis per protocol. I attest to the content of the Intraoperative Record and any orders documented therein. Any exceptions are noted below.
--- NOTE | 2023-12-03 08:50 | Orthopedic Progress Note ---
Date of Service December 03, 2023 Orthopedic Progress Note Patient tolerated total knee replacement well on the right side. Denies chest pain shortness of breath fever chills nausea vomiting or headache. Vital signs are stable he is afebrile. Neurovascular check limited by block. X-rays pending. Family notified. Right knee.
--- NOTE | 2023-12-03 08:52 | Discharge Summary ---
Date of Service December 04, 2023 Admission HPI Per Admitting Provider History of Present Illness (including history relevant to procedure): This 78-year-old male presents to clinic today for his preoperative history and physical. Patient has a longstanding history of persistent right knee pain that is affecting his ability to ambulate in a normal fashion. Patient states that the he has tried corticosteroid injections, viscosupplementation and activity modification but is still having discomfort in the medial aspect of his knee. He states that he has obvious malalignment and is unable to fully straighten his leg. Patient states that he previously had his left knee replaced and is doing very well and would like to proceed with right total knee arthroplasty. Review Of Systems: A 12 point review of systems is performed and is unremarkable except for those things stated in the HPI and past medical history. Past Medical History: Problems: Right knee pain Osteoarthritis of right knee S/P total knee arthroplasty Knee osteoarthritis Knee pain, left HTN (hypertension) Osteoarthritis Knee Hypercholesterolemia Procedure History Procedure Procedure Date Comments - 2017 Cardiac pacemaker - 02/20/21 placement Varicella 1967 Allergies and Sensitivities: amoxicillin-clavulanate(severe diarrhea) Bee stings Current Home Meds: (Last Updated 11/09 13:38) acetaminophen (Tylenol) 1,000 mg PO every six hours aspirin (aspirin 81 mg oral delayed release tablet) 81 mg PO Daily clindamycin (clindamycin 300 mg oral capsule) 2 capsules 1 hour before dental cleaning hydroCHLOROthiazide-triamterene (hydroCHLOROthiazide-triamterene 25 mg-37.5 mg oral tablet) 1 tab PO Daily lisinopril 2.5 mg PO Daily metoprolol (metoprolol succinate (ER)) 50 mg PO Daily rosuvastatin 20 mg PO Daily sildenafil 80 mg PO as needed sodium hyaluronate (Gelsyn-3 16.8 mg/2 mL intra-articular solution) 16.8 mg intra-articular q7days R KNEE DJD M17.11 tadalafil (Tadalafil (Eqv-Cialis) 20 mg oral tablet) TAKE 1 TABLET BY MOUTH ONCE DAILY NEEDED FOR ERECTILE DYSFUNCTION Initial Wt: 11/09 89.6 kg 197 lb Principal Diagnosis Osteoarthritis right knee flexion varus deformity Discharge Data Allergies Allergy/AdvReac Type Severity Reaction Status Date / Time bee pollen Allergy Severe anaphylaxis Verified 12/03/23 05:32 amoxicillin AdvReac Severe Diarrhea Verified 12/03/23 05:32 Vaccinations None Consultations None Procedures Performed Operation Date: 12/03/23 07:00 <No data on this case meets the specified criteria> Cemented right total knee replacement Ordered Studies 12/03/23 05:00 US - OR guided needle placemen Routine Hospital Course (1) Status post right knee replacement: Care plan for total knee replacement Total Time Total Time Spent Total Time Spent (In Minutes): 5 Discharge Plan Discharge Items Patient Disposition: Home - Home Health Services Reason For Visit: Right Knee Degenerative Joint Disease Discharge Diagnosis: Right knee s/p total knee replacement Condition on Discharge: Good Activity: Per Instructions section Lifting: Wait until after follow-up appointment Bathing: Keep incision dry Sexual Activity: Wait until after follow-up appointment Exercise/Sports: Wait until after follow-up appointment Driving/Machine Use: No driving until cleared by Dr. Hall Weightbearing: Full weightbearing Non-emergency contact: Surgeon Call non-emergency contact if: you have any medication questions, your pain is not controlled, your temperature is above 101.5, your wound has increased redness, your wound has increased drainage and your wound pain has increased Follow-up/Referrals: Rocky Velasco PA-C [Physician Building Guard Deputy Sheriff] - 12/18/23 Hector Hewitt MD [Primary Care Provider] - Diet: Heart Healthy Addtl Attending Provider Instructions: New Medicine: * You will likely be taking one or more of these medications: 1. Percocet - Take, as directed, when you need it, every four to six hours to control your pain. 2. Iron Sulfate - Take1x each day for the month after surgery to help you replace the blood lost during surgery. 3. Eliquis - Thins your blood to lessen the chance of forming a blood clot. * The most common side effects of pain medicine and iron are nausea and constipation. If nausea or constipation is too much of a problem or if you have any questions about your new medicines or doses, call [facility] at . We will try to help you manage these issues. "VERY IMPORTANT TO READ AND REVIEW" Blood Clots and Blood Thinning Medicine: * You are given Eliquis during the immediate post-operative period to lessen the risk of blood clots forming in your legs and/or lungs. It is usually given for 4 weeks after surgery. Pain: * The immediate post-operative period after knee replacement surgery is often quite painful. * You are given a prescription for pain medicine. You should take it, as directed, when you need it, especially before physical therapy and before going to bed. Pain that interferes with sleep is very common and can last several months. * You will likely need pain medicine for the first four to six weeks. It will not stop all of the pain. The pain will lessen and as you feel better, you may change to milder pain medicine such as Tylenol. * The most common side effects of pain medicine are nausea and constipation, so don't take more than you need. Physical Therapy: * You will have physical therapy two or three times each week for four to six weeks after your surgery in order to regain your knee range of motion and to ret rain your knee to work properly. * It is just as important to make sure you are getting your knee perfectly straight as it is to regain your knee bend. * Taking a pain pill an hour before therapy can help you have a more productive and comfortable therapy session if needed. Home Exercise: * You were shown a series of exercises (heel props, heel slides, etc.) in the hospital. Do these exercises three to four times each day including the exercises you were shown in physical therapy. Walking: * Get up and walk several times each day. For the first four weeks, try not to stand or walk for more than one hour at a time. If you do stand or walk for more than one hour, you will not hurt anything, but your knee and leg will likely swell. * As you feel comfortable, you may change from the walker or crutches to a cane and then to independent walking. SELF CARE INSTRUCTIONS AFTER TOTAL KNEE REPLACEMENT A. You may need to continue a physical therapy program after discharge from the hospital. There are several options available to you. Your doctor will assist you in selecting the best one for you. 1. An out-patient facility 2 to 3 times a week for therapy or home therapy. 2. Continue working on all exercises taught to you in the hospital. Your goals should be to increase bending of your knee to 90 degrees and beyond and to fully straighten your knee. B. You may progress at your own pace from walking with a walker or crutches to a cane; then to no assistive devices. C. Make walking a part of your daily routine. Be up as much as comfortable with rest periods throughout the day. Rest with leg elevation is very important. Use the ice wrap frequently for the first 3-4 weeks. D. There are no restrictions on activities. You may ride in a car, shop, participate in mutuel clerk and all social activities. E. Wear the long elastic stockings (GRACIE hose) 20 hours a day for six weeks after surgery. They can be removed several times a day for laundering and for a shower. F. Do not place a pillow behind your knee when resting. A pillow at your ankle is okay. VERY IMPORTANT TO READ AND REVIEW A. Take Eliquis (blood thinning medication) as directed by your doctor. B. There are a few signs you need to watch for after you are home. Call [facility] if you notice any of the followin. Increased severe knee pain. Some pain is expected especially when you exercise. 2. Increased swelling in your leg or knee; pain or swelling of the calf muscle in either lower leg. 3. Any fluid drainage from the incision. 4. Shortness of breath or chest pain. C. Please call [facility] at if you have any concerns or questions about your operation or recovery. The doctor or his nurse will return your call promptly. D. You must take antibiotics before dental work, bladder, bowel or other surgery. Call the office to obtain a prescription at least 2 days prior to your appointment. * CALL IF INCREASED PAIN, REDNESS, DRAINAGE OR FEVER GREATER THAT 101. * Sutures should be removed 12-14 days after surgery unless you are on chronic steroids, then it will be 14-18 days after surgery. Call your doctor if: * Temperature above 101 degrees F. * Pain not relieved by pain medicine ordered. * Increased drainage or redness from incision. * Notify your doctor with any questions or concerns. MEDICATIONS: * Please take your prescriptions as instructed at your pre-op appointment and/or see medication discharge instructions listed above. * If concerns develop, call your physician's office at . SPECIAL CARE INSTRUCTIONS: * Ice/Elevate as instructed. * Keep dressing clean, dry, intact. * Your surgical extremity may be discolored due to prepping agents used on the skin. A bluish-green tint is a normal variant and should not cause alarm. Call your doctor at [phone] if: * Temperature above 101 degrees * Pain not relieved by pain medicine ordered * There is increased drainage or redness from any incision * You have any unanswered questions, problems or concerns. FOLLOW UP VISIT: * If not already scheduled, please call the office at to schedule a follow-up appointment. Use your knee immobilizer today and tomorrow when out of bed. It can be discontinued entirely on Friday morning use your walker for ambulation ice and elevate the knee frequently to reduce pain/swelling Pending Studies at Discharge: Yes (Bone pathology) Stand-Alone Forms: [facility] [employer], Smoking Cessation Medications and DC Order Prescriptions: No Action metoprolol succinate 100 mg Tablet Extended Release 24 Hr 100 mg PO QAM aspirin 81 mg Tablet,Delayed Release (Dr/Ec) 81 mg PO QAM triamterene-hydrochlorothiazid 37.5-25 mg Capsule 1 cap PO QAM lisinopril 10 mg Tablet 10 mg PO QAM acetaminophen 325 mg Tablet 650 mg PO BID PRN (Reason: Pain) pantoprazole 40 mg Tablet,Delayed Release (Dr/Ec) 40 mg PO Q OTHER DAY Patient Comments: takes in the am rosuvastatin 40 mg Tablet 40 mg PO HS tadalafil 20 mg Tablet 20 mg PO QAM fluticasone propionate [Flonase Allergy Relief] 50 mcg/actuation [place],Suspension 1 spray INTRANASAL DAILY PRN (Reason: Nasal Congestion) Rx Instructions: administer into each nostril Centrum Adult 50 Plus 80 mcg Tablet,Chewable 1 tab PO QAM Probiotic Blend 2 billion cell-50 mg Capsule 1 cap PO QAM Rx Instructions: give with meal/snack NitroPCR 45-3.75-50 mg Tablet,Chewable 2 tab PO QAM Admission Data Admit Date/Time: 12/03/23 09:07 Attending Provider: Babar Hall Admit Provider: Babar Hall Primary Care Provider: Hector Hewitt
--- NOTE | 2023-12-03 08:56 | Operative Report ---
Post Operative Report Pre & Post Diagnosis Operation Date: 12/03/23 07:00 Pre-Op Diagnosis: Right Knee Degenerative Joint Disease Post-Op Diagnosis: Right Knee Degenerative Joint Disease I identified the patient and participated in the time-out.: Yes Procedure Operation Date: 12/03/23 07:00 Actual Procedures p Right Total Knee Arthroplasty(Right) - Babar Hall MD Surgeon Babar Hall MD Open Pit Quarry Supervisor Paolo/Krista Estimated Blood Loss 25 Findings Consistent with Post-Op Diagnosis Specimens Bone pathology Description of Procedure Patient brought to the operative suite. Right lower extremity was prepped and draped in usual sterile fashion. Surgical timeout was performed. Patient underwent a right total knee arthroplasty, please see Dr. Hall's operative report for full details. I was present and assisting with limb positioning, soft tissue retraction, hardware implantation, wound closure, postoperative dressing placement. Patient was awakened and taken to the recovery room in stable condition. I attest to the content of the Intraoperative Record and any orders documented therein. Any exceptions are noted below.
--- NOTE | 2023-12-03 08:57 | Operative Report ---
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 He had tried conservative care measures including injection therapy and activity modification, without lasting improvement. He elected to proceed with surgical intervention after being educated about potential risks and outcomes. Preoperative imaging was obtained. Description of Procedure The patient was administered a spinal anesthetic and then taken to the operating room where he was given sedation. He was prepped and draped in the usual sterile fashion. Please see Dr. Hall's operative report for specifics of the procedure. I was present for the entire case from initial patient positioning through final wound closure. Assistance was provided in tissue retraction, hemostasis, trial implant placement, final implant placement, and final wound closure. The patient was taken to the recovery room in satisfactory condition. I attest to the content of the Intraoperative Record and any orders documented therein. Any exceptions are noted below.
--- NOTE | 2023-12-03 09:05 | XRay Report ---
XR knee RT 1 or 2V routine CLINICAL HISTORY: S/P R TKA TECHNIQUE: 2 views of the right knee were obtained. Comparison: Comparison is made to knee radiograph 08/15/2023 FINDINGS: Patient is status post total knee arthroplasty with expected postsurgical changes including soft tiss ue swelling and subcutaneous emphysema. No periarticular lucency or hardware fracture is seen. IMPRESSION: Expected postoperative appearance status post placement of total knee arthroplasty. ACT 112: Negative or not required by law. Electronically signed by: Isaias Lion M.D. 12/03/2023 9:04 AM
[2023-12-03] MEDS ORDERED: NALOXONE HCL 0.4 MG/1 ML VIAL/CARP IV PRN (10:21)
[2023-12-03] MEDS ORDERED: bisacodyL 10 MG SUPP PR PRN (10:21)
[2023-12-03] MEDS ORDERED: TAMSULOSIN HCL 0.4 MG CAP PO PRN (10:21)
[2023-12-03] MEDS ORDERED: METOCLOPRAMIDE HCL INJ 5 MG/ML 2 ML VIAL IV PRN (10:21)
[2023-12-03] MEDS ORDERED: FLUTICASONE PROPIONATE NA SPR 16 GM BTL NAE PRN (10:21)
[2023-12-03] MEDS ORDERED: MAGNESIUM HYDROXIDE SUSP 30 ML UDC PO PRN (10:21)
[2023-12-03] MEDS ORDERED: diphenhydrAMINE 50 MG/ML VIAL IV PRN (10:21)
[2023-12-03] MEDS ORDERED: oxyCODONE HCL IR 5 MG TAB (IMMEDIATE RELEASE) PO PRN (10:21)
[2023-12-03] MEDS ORDERED: ALUMINUM/MAGNESIUM SUSP 30 ML UDC PO PRN (10:21)
[2023-12-03] MEDS ORDERED: HYDROmorphone INJ 0.5 MG/0.5 ML SYR IV PRN (10:21)
--- NOTE | 2023-12-03 10:23 | Anesthesiology Progress Note ---
Date of Service December 03, 2023 Anesthesia Post Procedure Vital Signs Vital Signs: Temp Pulse Resp BP Pulse Ox O2 Del Method O2 Flow Rate 12/03/23 10:05 98.1 F 59 L 15 120/66 97 Room Air 12/03/23 09:55 61 15 109/65 97 Room Air 12/03/23 09:45 54 L 19 120/66 95 Room Air 12/03/23 09:35 63 13 110/61 100 Room Air 12/03/23 09:25 55 L 15 109/60 96 Room Air 12/03/23 09:15 60 13 103/61 95 Room Air 12/03/23 09:05 68 21 95/60 L 93 Room Air 12/03/23 08:55 98.2 F 72 18 89/64 L 99 Oxymask 4 12/03/23 05:37 97.9 F 61 20 147/84 H 98 Room Air Transfer of Care Handoff Completed per policy Notes Mental Status: alert / awake / arousable and participated in evaluation Patient Amnestic to Procedure: Yes Nausea / Vomiting: adequately controlled Pain: adequately controlled Airway Patency, RR, SpO2: stable & adequate BP & HR: stable & adequate Hydration State: stable & adequate Neuraxial Anesthesia: was administered and sensory block is resolving Anesthetic Complications: no major complications apparent and Pt Satisfied with anesthetic care
[2023-12-03] MEDS: SODIUM CHLORIDE 0.9% 1,000 ML IV SCH (10:33)
[2023-12-03] MEDS: TRANEXAMIC ACID 1,000 MG **IV Intra-op IV SCH (10:57)
[2023-12-03] MEDS: TRANEXAMIC ACID 1,000 MG **IV Pre-op IV SCH (10:57)
[2023-12-03] MEDS ORDERED: VANCOMYCIN CONSULT ACTIVE PRN (11:01)
[2023-12-03] MEDS: METOPROLOL SUCC 50MG EXT REL TAB PO SCH (11:20)
[2023-12-03] MEDS: ASPIRIN 81 MG ECTAB PO SCH (11:21)
[2023-12-03] MEDS: PANTOprazole 40 MG TAB PO SCH (11:21)
[2023-12-03] MEDS: TRIAMTERENE/HCTZ 37.5/25MG TAB PO SCH (11:21)
[2023-12-03] MEDS: lisinopril 10 MG TAB PO SCH (11:22)
[2023-12-03] MEDS: KETOROLAC TROMETHAMINE 15 MG/ML VIAL IV SCH (11:22)
[2023-12-03] MEDS: DOCUSATE SODIUM 100 MG CAP PO SCH (11:22)
[2023-12-03] MEDS: MULTIVITAMIN TAB PO SCH (11:22)
[2023-12-03] MEDS ORDERED: VANCOMYCIN HCL 1,250 MG in SODIUM CHLORIDE 0.9% 500 ML IV ONE (12:15)
[2023-12-03] MEDS: VANCOMYCIN HCL 1,250 MG in SODIUM CHLORIDE 0.9% 250 ML IV ONE (13:04)
[2023-12-03] MEDS: ceFAZolin 2000MG 2,000 MG/15 ML SYR IV SCH (14:54)
--- NOTE | 2023-12-03 15:11 | Orthopedic Progress Note ---
Date of Service December 03, 2023 Assessment & Plan Admission and Anticipated Discharge Date Admission Date: December 03, 2023 Orthopedic Progress Note Afternoon rounds is doing well sitting up in a chair is no issues. He denies chest pain shortness of breath fever chills nausea vomiting or headache. Vital signs are stable he is afebrile. Neurovascular check femoral sciatic nerve is normal. Postop x-rays were excellent. Assessment doing well plan is to continue care pathway saline lock IV and mobilize. He has been up in the bathroom doing well. Continue independent exercises on sheet.
[2023-12-03] MEDS: ASCORBIC ACID 500 MG TAB PO SCH (18:05)
[2023-12-03] MEDS: FERROUS GLUCONATE 324 MG TAB PO SCH (18:05)
[2023-12-03] MEDS: ROSUVASTATIN CALCIUM 20 MG TAB PO SCH (20:25)
[2023-12-03] MEDS: SENNA 8.6 MG TAB PO SCH (20:25)
--- NOTE | 2023-12-04 06:40 | Orthopedic Progress Note ---
Date of Service December 04, 2023 Assessment & Plan Admission and Anticipated Discharge Date Admission Date: December 03, 2023 Orthopedic Progress Note Postop day #1 status post right knee replacement. Patient is doing well is no major issues denies chest pain shortness of breath fever chills nausea vomiting or headache. Wound dressing clean dry and intact. Neurovascular check femoral sciatic nerve is normal. A.m. labs are pending. Calves are nontender he can do a straight leg raise. Assessment doing well continue care management plan discharge to home after PT OT. Initiate anticoagulation prophylaxis today. Follow-up in 2 weeks for staple removal.
[2023-12-04 07:27] VITALS: RESP 16; TEMP 98.1; O2SAT 95
[2023-12-04 07:49] LABS: Hematocrit (blood only) 30.4 % (42.0-52.0); Hemoglobin 10.5 g/dl (14.0-18.0); Mean Corpuscular Hgb Conc 34.5 g/dL (32.0-36.0); Mean Corpuscular Volume 89.7 fL (80.0-100.0); Mean Platelet Volume 10.2 fL (9.4-12.4); Platelet Count 170 K/uL (130-400); RDW Coefficient of Variation 13.3 % (11.5-14.5); RDW Standard Deviation 43.6 fL (36.4-46.3); Red Blood Count 3.39 M/uL (4.70-6.10); White Blood Count 10.16 K/ul (4.8-10.8)
[2023-12-04 08:14] LABS: Calcium 8.7 mg/dl (8.6-10.3)
[2023-12-04 08:19] LABS: BUN Creatinine Ratio 20.5 (10-20); Creatinine Clr Calc Pharmacy 62.3 ml/min
[2023-12-04] MEDS: dexAMETHasone 10 MG in SYRINGE 0 ML IV SCH (08:45)
[2023-12-04] MEDS: APIXABAN 2.5 MG TAB PO SCH (08:45)
--- NOTE | 2023-12-04 09:58 | Orthopedic Progress Note ---
Date of Service December 04, 2023 Assessment & Plan (1) Status post right knee replacement: Plan: The patient was educated regarding today's findings. His postsurgical dressing was changed by me. Tevin stocking was applied. Continue using the knee immobilizer when out of bed today and tomorrow. It can be discontinued entirely on Friday morning. Written discharge instructions were provided. Prescriptions for Eliquis and Percocet were sent to his pharmacy. Follow-up in the office in 2 weeks as scheduled with me. Continue with ice, elevation, and use of his walker. He will attend outpatient PT starting tomorrow. This is already been arranged. Call the office with any other concerns. Admission and Anticipated Discharge Date Admission Date: December 03, 2023 Subjective This 78-year-old male is seen this morning in his room. He is 1 day status post right total knee arthroplasty. He has no complaints. He denies any chest pain, shortness of breath, nausea, vomiting, or abdominal pain. No significant leg pain this morning. He feels well and ready for discharge to home. No other complaints at this point. Review of Systems Review of Systems: Unchanged from yesterday. Physical Exam Physical Exam: General: Well-developed, well-nourished, elderly male, in no acute distress. Sitting in bed. Alert and oriented. Conversive. Skin: Warm and dry with good turgor. No rashes. Postsurgical dressings are in place on the right knee. Upon removal, he has scant dried blood on the inner dressings. No active bleeding. No significant ecchymosis or effusion yet. [place] are in place. Wound edges are well-approximated. Musculoskeletal: Right knee evaluation reveals intact quad function. He is able to perform a straight leg raise. He has full terminal extension. Flexion to around 60 degrees. Intact motor function to the ankle and toes. Neurologic: Gross sensation is intact across the right leg by soft touch. Peripheral pulses are 2+. Results & Data Vital Signs (Past 12 Hours) Vital Signs Temp Pulse Resp BP BP Pulse Ox O2 Del Method 12/04/23 07:26 36.7 C 102 H 16 118/72 95 Room Air 12/04/23 03:43 36.8 C 83 18 107/67 93 Room Air 12/03/23 23:13 37.0 C 74 18 101/64 97 Room Air
[2023-12-04 09:59] VITALS: BP 107/67; PULSE 52
== END 2023-12-04 10:58 | disposition home health service (06) ==
LOC: ASU 05:03 → 3W 05:03